=== PATIENT | female | born 1990 | race Caucasian/White ===

== ENCOUNTER 2025-05-17 14:50 | Inpatient (IN) | payer BC, SELFPAY ==
[2025-05-17] VITALS (22 sets, daily range): BP systolic 107–189; BP diastolic 68–131; BMI 25.7; BMI 24.1
[2025-05-17 13:28] LABS: Glucose - Point of Care 100 mg/dl (70-99)
--- NOTE | 2025-05-17 13:32 | ED.GENMED ---
History of Present Illness
General
Chief Complaint: Problems
Time Seen by Provider: 05/17/25 13:29
History of Present Illness
History of Present Illness:
FOCUSED PAST MEDICAL HISTORY
- 31 weeks as of 05/17/2025
REVIEW OF OLD RECORDS
- No old records available for review immediately however L&D team was able to obtain records at [place] which indicate that she is 31 weeks
Note:
CHIEF COMPLAINT(S)
Headache, high blood pressure, vomiting, confusion, tonic-clonic seizure.
HISTORY OF PRESENT ILLNESS
The patient is a 35-year-old female who presented with a headache, high blood pressure, vomiting, and confusion. This morning, she experienced a tonic-clonic seizure that lasted approximately one minute, according to her . Emergency Medical
Services (EMS) were called as the patient began seizing. Upon EMS arrival, she was postictal and still recovering from the seizure. Treatment with magnesium sulfate was initiated via intravenous drip, and the complete dosage was administered as the
patient was coming out of the seizure. She has been experiencing recurring headaches, which were notably present this morning prior to the seizure.
ADDITIONAL HISTORY OBTAINED FROM SOURCES OTHER THAN THE PATIENT
Per EMS: On arrival, the patient was postictal and recovering from a tonic-clonic seizure. EMS administered two grams of magnesium sulfate intravenously, which the patient was responsive to, showing signs of recovery from the seizure. The patients
reported the seizure duration and associated symptoms.
PHYSICAL EXAM
General: Eyes primarily closed, appears postictal, somewhat ill-appearing
Skin: Warm, dry.
Head: Normocephalic, atraumatic.
Neck: Supple, trachea midline.
Eye Ears, nose, mouth and throat: Oral mucosa moist. Pupils dilated bilaterally.
Cardiovascular: Normal peripheral perfusion, no edema.
Respiratory: Respirations are non-labored.
Abdominal: Gravid uterus
Back: Normal range of motion, normal alignment.
Musculoskeletal: No obvious deformity
Neurological: The patient appears postictal and intermittently and has been having trouble answering questions appropriately, appears confused
Psychiatric: Limited examination
PROBLEM LIST
Acute problems:
- Seizure (tonic-clonic)
- Headache
- Vomiting
- Confusion
- Hypertension
PLAN
- Obtain a cranial computed tomography (CT) scan to assess for any acute intracranial pathology.
- Collect a urine sample for further analysis.
- Consult with MEDIA RELATIONS MANAGER as the patient may have -related concerns.
DIFFERENTIAL DIAGNOSIS
The Differential Diagnosis includes, in no particular order and is not limited to:
1. Eclampsia
2. Intracranial hemorrhage
3. Encephalitis
4. Hypoglycemia
5. Hypertensive crisis
6. Epilepsy
7. Migraine with aura
8. Meningitis
9. Brain tumor
10. Substance-induced seizure
RADIOLOGY
- CT head personally reviewed and I see no clear acute abnormality
LABS
- Initial blood sugar 100, white count 13.3, hemoglobin 11.2
UPDATE
- I spoke to EMS for history. They tell me that the patient's was a very poor historian. She reportedly had been having headaches for a while and started vomiting today. EMS was called. EMS arrived very quickly and found her seizing upon
their arrival. They gave her 2 g of IV magnesium. She then became postictal. When she arrived here, she was a very limited historian.
She was immediately sent for CT to ensure there is no other concerning cause and by my read there is no acute intracranial abnormality. While on the CT table she started seizing and was given 10 mg of IV Valium, additional magnesium, and labetalol
20 mg IV as she was hypertensive with systolics around 160.
Dr. Pelayo had been consulted and performed the bedside ultrasound which apparently shows breech presentation.
SUMMARY OF ENCOUNTER
The patient was seen immediately upon arrival to the emergency department, appearing postictal with subsequent seizure activity while in the CT scan. She had been administered magnesium sulfate by EMS before arrival and was given an additional dose
in the emergency department. Her systolic blood pressure was recorded at 160 mmHg, and 20 mg of IV labetalol was administered on the recommendation of Dr. Pelayo. During the CT scan seizure episode, the patient was given 10 mg of IV diazepam
(Valium). She was placed on a non-rebreather mask for oxygen support and required suctioning.
DISPOSITION
Admit.
ASSESSMENT
The patient is experiencing eclampsia, characterized by seizures and hypertension.
EMERGENCY TREATMENTS ADMINISTERED
Additional magnesium sulfate was administered. The patient was given 20 mg of IV labetalol and 10 mg of IV diazepam (Valium). Oxygen was provided via a non-rebreather mask, and suctioning was performed.
MANAGEMENT OF THE PATIENTS CARE WAS DISCUSSED WITH
Dr. Pelayo recommended the administration of labetalol for the patients hypertension.
PLAN
The patient will be admitted for further monitoring and management of eclampsia, with ongoing seizure precautions and blood pressure management. Continuous monitoring and supportive care will continue in a controlled hospital environment.
Coordination with MEDIA RELATIONS MANAGER for specialized management of eclampsia will be necessary.
MEDICATION RECONCILIATION
Magnesium sulfate (additional dose), labetalol IV 20 mg, and diazepam (Valium) IV 10 mg were administered.
MEDICAL DECISION MAKING
-Complexity of Data Reviewed: Differential diagnosis considered but ultimately focused on eclampsia.
-Data:
Category 1: Patient history and EMS reports reviewed.
Category 2: Clinical information obtained through consultation with Dr. Pelayo.
-Risk: Due to the nature of the emergency interventions and the diagnosis of eclampsia, escalation of care with admission for intense monitoring was determined to be necessary to reduce morbidity and mortality risks.
DIAGNOSIS
- Eclampsia (O15.9)
Phy Exam
Physical Exam
Physical Exam:
See HPI
Course
Orders/Labs/Results
Orders:
Orders
05/17/25 Breakfast
NPO
Allow oral meds: No
Allow clear liquids: No
NPO with Ice Chips: No
NPO
Allow oral meds: No
Allow clear liquids: No
NPO
Allow oral meds: No
Allow clear liquids: No
NPO with Ice Chips: No
05/17/25 13:[address] [CT Head W/o Iv Contrast] Urgent
Comment:
Reason For Exam: seizure and headaches
05/17/25 13:41
Calcium Gluconate 1,000 mg IV PRN PRN
05/17/25 13:42
Activity As Directed
Activity Level: Bedrest
Comment: in lateral recumbent position
Continuous Electronic Monitoring As Directed
Comment: continuous heart rate and uterine monitoring while undelivered
INT (Intravenous Needle Therapy) As Directed
Comment: Insert and maintain 2 IV access sites
Intake/ Output As Directed
Frequency: q1h
Comment: strict hourly Input and Output while on magnesium therapy
Magnesium Sulfate Maternal Monitoring As Directed
Monitoring Instructions: Maternal vital signs including Oxygen Saturation
- every 5 minutes during bolus of Magnesium Sulfate, then every 15 minutes x 4, then
every 30 minutes x 2, then every hour until delivered.
- After delivery, every 15 minutes x 2, then hourly until magnesium sulfate therapy
is discontinued.
Deep tendon reflexes (DTR) every 2 hours
Ausculation of lungs every 2 hours
Notify MD As Directed
Notify physician if: 1. Deep tendon reflexes are greater than +2 or absent
2. Rales present or respirations less than or equal to 12
Vital Signs As Directed
Frequency: Other
Additional Instructions:: Maternal vital signs including Oxygen Saturation
- every 5 minutes during bolus of Magnesium Sulfate, then every 15 minutes x 4, then
every 30 minutes x 2, then every hour until delivered.
-After delivery, every 15 minutes x 2, then hourly until magnesium sulfate therapy
is discontinued.
Rx Incentive Spirometry [RESP] Routine
Frequency: Other
Comment: BID
05/17/25 13:43
Labetalol HCl [Trandate] 20 mg IV NOW STA
diazePAM [Valium Injection] 10 mg IV NOW STA
05/17/25 13:44
Calcium Gluconate 1,000 mg IV PRN PRN
Magnesium Sulfate 4 Gram/100Ml [Magnesium Sulfate] 4 gram in 100 ml IV NOW
INT (Intravenous Needle Therapy) As Directed
Comment: Insert and maintain 2 IV access sites
Rx Incentive Spirometry [RESP] Routine
Frequency: Other
Comment: BID
05/17/25 13:59
Propofol [Diprivan] 20 ml .ROUTE .STK-MED
05/17/25 14:00
Mag Sulfate 40 Gram/1000 ml [Magnesium Sulfate 40 Gram] 40 gram in 1,000 ml IV 50 mls/hr
Midazolam HCl [Versed] 5 mg .ROUTE .STK-MED ONE
05/17/25 14:01
Catheter- Indwelling As Directed
Reason for insertion: I&O's Obstetrical
Comment: indwelling urine catheter with urimeter for Pre-Eclampsia patients
Comment:
05/17/25 14:02
Admit Patient As Directed
Co-Sign Provider:
Level of Care: Inpatient admission
Assign to:: LDRP
Physician / Group: Renee
Diagnosis: 31w Eclampsia
Patient Condition: Fair
Reason for Hospitalization: eclampsia mgmt, delivery
Expected length of stay greater than two midnights?: Yes
ELOS- Estimated Length of Stay in days: 4
I certify the patient meets the requirements for IP care: Yes
Acetaminophen [Tylenol] 975 mg PO ONCE ONE
CeFAZolin 2 GRAM [Ancef] 2 grams in 10 ml IV PRE PROCEDURE
Rocuronium [place] [Rocuronium] 50 mg .ROUTE .STK-MED ONE
Sodium Citrate/Citric Acid [Bicitra] 30 ml PO ONCE ONE
Succinylcholine Chloride [Succinylcholine] 200 mg .ROUTE .STK-MED ONE
Catheter- Indwelling As Directed
Reason for insertion: Karla-Op Remove POD #1
Continuous Electronic Monitoring As Directed
Maternal Assessment for Urine Drug Screen As Directed
Instructions: if Maternal substance abuse history is known, suspected or has < 5 visits obtain urine
drug screen
OR/Surgery Prep As Directed
Type of Prep: abdominal clip prep pre-op
Venous Foot Pumps As Directed
Location: Bilateral feet
Comment: apply prior to surgical incision
Vital Signs As Directed
Frequency: Per unit guidelines
Call for:: SBP >/= 160 mmHg, DBP >/= 110 mmHg, pulse > 120 bpm, temperature > 100.4 F
PRN Pain Medication Management As Directed
May give lesser potent ordered pain med per pt: Yes
preference::
Protocol:: Medication orders for pain may be administered in a
manner that supports deferring to patient preference
when the pt is:
- Requesting an ordered lesser potent pain medication.
Least to most potent pain medications are defined
as: acetaminophen < NSAID < tramadol < opioids
(morphine, oxycodone, hydromorphone).
- Requesting a lesser dose of the same medication IF
ORDERED.
- Requesting a less intrusive route of administration
if both routes are prescribed by the provider (PO <
IV).
DX Deep Vein Thrombosis Video Routine
OB Magical Hour Video Routine
OB Unit Welcome Part 1 Video Routine
05/17/25 14:04
0.9% Sodium Chloride 500 ml [Nss] 500 ml IV BOLUS
05/17/25 14:09
Type+Screen Urgent
Complete Blood Count/With Diff Urgent
PTT Urgent
Prothrombin Time Urgent
05/17/25 14:26
Succinylcholine Chloride [Succinylcholine] 200 mg .ROUTE .STK-MED ONE
05/17/25 14:36
Comprehensive Metabolic Panel Urgent
Magnesium Urgent
05/17/25 15:00
Lactated Ringers [Lr] 1,000 ml IV DIRECTED
Abnormal Lab Results
05/17/25 05/17/25
13:26 14:09
WBC 13.3 H 10^3/uL
(4.8-10.8)
RBC 3.61 L 10^6/uL
(4.20-5.40)
Hgb 11.2 L g/dL
(12.0-16.0)
Hct 34.1 L %
(37.0-47.0)
MCHC 32.8 L g/dL
(33.0-37.0)
Abs Immat Gran (auto) 0.1 H 10^3/uL
(0-0.05)
Absolute Neuts (auto) 12.0 H 10^3/uL
(1.4-6.5)
Absolute Lymphs (auto) 1.0 L 10^3/uL
(1.2-3.4)
Neutrophils % 90.6 H %
(42.2-75.2)
Lymphocytes % 7.4 L %
(20.5-51.1)
Monocytes % 1.3 L %
(1.7-9.3)
POC Glucose 100 H mg/dl
(70-99)
05/17/25 14:09
Vital Signs
Initial and Last Documented VS:
Initial Vital Signs
Pulse Resp Pulse Ox
86 14 100
05/17/25 13:58 05/17/25 13:58 05/17/25 13:58
Last Documented Vital Signs
Pulse Resp BP Pulse Ox
91 16 112/98 100
05/17/25 14:20 05/17/25 14:20 05/17/25 14:20 05/17/25 14:20
Information
Weeks gestation: Weeks: (31)
Location: Location: ([facility])
*Pulse Oximetry
Patient hypoxic: no
*Critical Care Note
Total Time (30-74mins, 75-104mins- exclusive of procedures): 65min
comment:
The patient was seen immediately upon arrival. Gave benzos for seizure, gave magnesium for seizure, treated high blood pressure with labetalol. Emergently coordinated care with OB. CT suggest PRES and also notified Dr. Bailon.
ED Attending Note
-
Portions of this chart may have been created with voice recognition software.� Occasional wrong word or��sound alike� substitutions may have occurred due to the inherent limitations of voice recognition software.
Discharge Plan
Departure
Patient Disposition: LDRP
Date of Disposition: 05/17/25
Time of Disposition: 13:58
Presentation/result/management discussed w/ accepting MD/DO: dr pelayo
Discharge Problem:
Eclampsia
Prescriptions:
No Action
Unobtainable
0
Referrals:
UNKNOWN - PT NOT,INTERVIEWE [Family Provider]
Interventions
Interventions:
*Risk Screen - Suicide Last Done: 05/17/25 13:45
*General Assessment Last Done: 05/17/25 13:45
*Neglect/Abuse Screening Last Done: 05/17/25 13:45
ED-Female Genitourinary Assessment Last Done: 05/17/25 13:45
Discharge Date and Time
Print Language: K[place]IL[place]
[2025-05-17] MEDS: MAGNESIUM SULFATE 100 IV (13:45)
[2025-05-17] MEDS: VALIUM INJECTION 10 MG IV (14:03)
[2025-05-17] MEDS: TRANDATE 20 MG IV (14:04)
[2025-05-17] MEDS: NSS 500 IV (14:05)
[2025-05-17 14:31] LABS: INR 0.98; PT 13.3 Sec (11.4-14.6)
[2025-05-17 14:32] LABS: Hematocrit 34.1 % (37.0-47.0); Hemoglobin 11.2 g/dL (12.0-16.0); Mean Corp Hgb Conc. 32.8 g/dL (33.0-37.0); Mean Corpuscular Volume 94.5 fL (81.0-99.0); Nucleated Red Blood Cells % 0 %; Platelet Count 192 10^3/uL (130-400); Red Cell Dist. Width 11.9 % (11.5-14.5)
[2025-05-17] MEDS: ANCEF 10 IV (14:45)
[2025-05-17] MEDS: MAGNESIUM SULFATE 40 GRAM 1000 IV (14:47)
[2025-05-17 14:51] LABS: APTT 18.4 Sec (23.4-35.0)
[2025-05-17 15:07] LABS: Cord ABG Comment CORD BLOOD
[2025-05-17 15:08] LABS: B.E. Cord ABG -6.9 mMOL/L; HCO3 Cord ABG 20.9 mmol/L; O2 Saturation % Cord ABG 86.4 %; PCO2 Cord ABG 50 mmHg; PO2 Cord ABG 43 mmHg; pH Cord ABG 7.23
[2025-05-17 15:14] LABS: O2 Saturation % Cord ABG 93.4 %
--- NOTE | 2025-05-17 15:59 | CON.INTV ---
Consultation
Consultation Request
Date/Time Consultation Requested: 05/17/2025
Date/Time Consultation Performed: 05/17/2025
Medical History
-
Chief Complaint: Altered mental status, Seizure
History of Present Illness:
Patient is currently intubated, mechanically ventilated and sedated. Unable to provide any history. I attempted reaching patient's family on the phone numbers listed in the chart, unable to reach anyone. Information obtained from patient's
medical record as well as discussion with other healthcare providers.
In brief patient is a 35-year-old female who was 31-week and was having nausea vomiting and a headache at home. EMS was called for altered mental status and patient was noted to be seizing. She received magnesium sulfate and subsequently
became postictal, and was brought to the emergency room. Patient was taken emergently to CT scan as she was noted to be hypertensive and had another episode of seizure requiring additional magnesium sulfate. Patient was evaluated by OB service and
was taken emergently to the OR for . Postsurgery, she was brought to ICU intubated, mechanically ventilated and sedated. Silk Presser consultation was requested for further input and I evaluated the patient as soon as she arrived in the
ICU. Discussed with OB attending at bedside.
Past medical history. Not available
Past surgical history. Unable to obtain
Social history. Unobtainable
Family history. Unobtainable
Allergies / Home Medications
Allergies
Allergy/AdvReac Type Severity Reaction Status Date / Time
No Known Allergies Allergy Verified 05/17/25 14:08
Home Medications
�Medication �Instructions �Recorded �Confirmed �Last Taken �Type
Unobtainable 05/17/25 05/17/25 Unknown History
Review of Systems
-
Unable to Obtain full review of systems at this time due to: Patient Intubation
Vitals / Labs / Diagnostic Testing
Vital Signs
Pulse Resp BP Pulse Ox
91 16 112/98 100
05/17/25 14:20 05/17/25 14:20 05/17/25 14:20 05/17/25 14:20
Lab Data
05/17/25 14:09
Laboratory Results
05/17/25
14:09
PT 13.3
INR 0.98
APTT 18.4 L
Diagnostic Testing:
Physical Exam
-
HEENT: Normocephalic
Cardiovascular: S1/S2
Respiratory: Clear and Non-Labored Respirations
GI: Soft and Non Distended
Neurology: Other (Currently sedated)
Skin: Warm
General: Comfortable
Assessment
-
#1. Seizures with suspect Eclampsia
- Patient had seizures x 2, hypertension on arrival along with altered mental status and PRES changes on imaging
- S/p intubation and mechanical ventilation in the emergency room, followed by emergent , currently intubated and sedated in ICU
- Continue magnesium infusion as ordered per OB service.
- Stat bedside EEG to monitor for any nonconvulsive seizure
- Continue sedation, propofol and fentanyl while intubated
- IV Valium as needed for break through seizure
- If patient develops any additional episodes of seizure, will initiate antiseizure medication
- Neurology consult for further recommendations
- Continue to monitor closely in ICU
- Platelet count is normal at 192K, check liver function testing stat. INR normal at 0.98
#2. Hypertensive emergency with PRES syndrome
- Labetalol 10 mg IV every 4 hrs as needed systolic above 160. Initiate Cardene infusion, target BP < 140/90, discussed with OB attending
- Monitor input and output strictly, monitor renal function closely
#3. Acute respiratory failure
- Patient intubated in emergency room in the setting of seizures and postictal state with eclampsia
- Initiate propofol and fentanyl for sedation, continue volume assist-control mechanical ventilation, currently on 500/14. ABG reviewed, change settings to 400/16/50%/5. ABG in 1 hour
- Check stat ABG and lactate level. Check stat chest x-ray
- Will initiate SAT and SBT once cleared by Ob service
Other diagnoses:
- 31 weeks. s/p Emergent C- Section 05/17/2025 for Eclampsia. Management per Ob service
- HTN and ? Hypothyroidism.
DVT prophylaxis. SCDs. Will defer initiation of chemical prophylaxis to surgical service
GI prophylaxis. IV Protonix
Attempted to reach family on the phone numbers listed in the chart, unable to reach.
Addendum: I was able to talk to patient's partner, Haseeb Zaragoza, . Reported h/o HTN, not on any anti-hypertensive meds.
Critical Care time 68 mins -- The patient is admitted for acute critical illness for the treatment of vital organ failure and/or prevention of further life-threatening conditions. Total care includes time spent in review of history, physical exam,
medications, hemodynamic/ventilator parameters, laboratory data, imaging and discussion with house staff, pharmacy, respiratory therapy, combination welder, and nursing.
Data:
CT Head 05/2025: Mild amount of nearly symmetric low attenuation in the posterior cortical del cid matter and subcortical white matter of both occipital lobes most consistent with POSTERIOR REVERSIBLE ENCEPHALOPATHY SYNDROME (PRES).
[2025-05-17] MEDS: DIPRIVAN 100 IV ×2 (16:18→23:56)
[2025-05-17] MEDS: PITOCIN 30 UNITS/NSS 500 ML IV ×2 (16:19→20:01)
--- NOTE | 2025-05-17 16:21 | HPS.HSE ---
Family Physician
-
Family Physician: INTERVIEWE UNKNOWN - PT NOT
Chief Complaint
-
seizure, PAULA, N/V
History of Present Illness
Flora Maria is a 35 yo at 31w0d presenting via EMS after a witnessed seizure at home. Patient's boyfriend states that she had an episode of altered mental status and prolonged headache. Patient's boyfriend reports normal with no
issues although he is a poor historian. Patient was receiving care at [facility].
Medical History
Past Medical History
Past Medical History: Reports None
Additional Past Medical History:
Questionable chronic hypertension, Not on meds
Past Surgical History: Reports None
Social History
Tobacco: Non-smoker
Alcohol: None
Drug: None
Living: With Family
Family History
Family History: Not pertinent
Allergies / Home Medications
Allergies reflects when Allergies were last updated in [employer].
Home Medications with original date entered in [employer]
Allergy/Medication List:
Allergies: No known drug allergies
Home medications: Levothyroxine 25 mcg daily, vitamin daily
Review of Systems
-
Unable to obtain full review of systems at this time due to: Acuity
History Source: Family and Transfer Record
Abdomen/GI: Reports Nausea and Vomiting
Neurological: Reports Headache
Physical Exam
Vital Signs
Vital Signs
Pulse Resp BP Pulse Ox
91 16 112/98 100
05/17/25 14:20 05/17/25 14:20 05/17/25 14:20 05/17/25 16:09
Physical Exam
General: Appears in Distress
HEENT: NormoCephalic
Respiratory: Non Labored Respirations
GI: Soft, Non Tender and Other (Gravid)
Skin: Warm and Dry
Neuro: Other (Postictal)
Laboratory Results
-
05/17/25 14:09
Laboratory Results
PT 13.3 Sec (11.4-14.6) 05/17/25 14:09
INR 0.98 05/17/25 14:09
APTT 18.4 Sec (23.4-35.0) L 05/17/25 14:09
Total Bilirubin Cancelled 05/17/25 14:09
AST Cancelled 05/17/25 14:09
ALT Cancelled 05/17/25 14:09
Alkaline Phosphatase Cancelled 05/17/25 14:09
Data Reviewed
-
CT Scan: Report Reviewed by me, Discussed with Physician, Discussed with Patient and Discussed with Family
Lab Data: Labs Reviewed by me, Discussed with Patient and Discussed with Family
Old Records: Requested and Reviewed
Impression/Plan
-
IMPRESSION:
Flora Maria is a 35 yo at 31w0d presenting with suspected eclamptic seizure.While patient underwent initial evaluation in the emergency room, patient was noted to have a witnessed seizure in CT.
PLAN:
� Admit for eclampsia management and delivery
� 2 g of mag was given in ambulance, 4 g in ER, 2 g/h maintenance until 24 hours . Collect preeclampsia labs. As needed antihypertensives (already received 20mg of IV labetalol).
� CT head, Patient did have witnessed seizure during CT. consider MRI when stable
� Preop Ancef 2 g with plan for 1LTCS in the setting of eclampsia.
�Patient's partner consents to blood transfusion and CPR if needed given patient is not responsive.
--- NOTE | 2025-05-17 16:22 | OR.RPT ---
Operative Report
Operative Report
Operative Report
Surgery Date: 05/17/2025
Patient: Flora Maria
: 1990

Surgeon: Remedios Duran MD
Preop diagnosis: 31w0d IUP, eclampsia
Postop diagnosis: Status post primary low-transverse section at 31 weeks 0 days under general anesthesia for eclampsia
Procedure: Primary low-transverse section
Job Service Consultant: Camila Zeng
Anesthesia: General; MD You
QBL: 340cc
Drains: Ramirez
Operative findings:
1. Viable male born on 05/17/2023 at 1446 with Apgars of 2, 4, and 4 at 1, 5 and 10 minutes. Fetus weight is pending at the time of dictation.
2. Normal intact small placenta with centrally inserted three-vessel cord.
3. Normal uterus, bilateral tubes and ovaries.
Umbilical cord:
Arterial: pH 7.3, CO2 50, O2 43, HCO3 20.9, and base excess -6.9
Complications: None
Counts correct x 2
Procedure details:
The patient was taken to the operating room. The patient was placed in dorsal supine position with a left tilt of the hips. heart tones were noted to be 140s in the OR. General anesthesia was adequately established. 2 g of Ancef was given
for preoperative prophylaxis. The patient was prepped with ChloraPrep for abdominal prep and draped in the usual sterile fashion for a Pfannenstiel skin incision.
A timeout was performed to confirm correct patient and correct procedure.
A Pfannenstiel incision was made and carried down through the underlying subcutaneous tissue to the fascia using a scalpel. Rectus fascia was then excised. We then proceeded in [place]: Fashion. All anatomic layers were well-demarcated. The
rectus muscles were and the peritoneum was identified, entered, and extended longitudinally with blunt dissection.
The bladder blade was inserted and a transverse incision was made in the lower uterine segment using a new surgical blade. The uterine incision was extended cephalad and caudad using blunt dissection. The amniotic sac was entered and the amniotic
fluid was noted to be clear.
The surgeons hand was placed into the uterine cavity. The buttocks was identified and elevated through the uterine incision with the assistance of fundal pressure. body was delivered to the level of the scapula with spontaneous
delivery of lower extremities. Remainder of arms and vertex delivered atraumatically via Aqbrvliak-Pxjqslx-Gaqg maneuver. There was no nuchal cord noted. On delivery the cord was immediately doubly clamped and cut given floppy
appearance of . The infant was then passed off the table to the waiting staff. Venous and arterial blood gas, cord blood, and portion of cord was obtained for analysis and routine blood testing. The placenta delivered and was then
sent to pathology. Placenta was noted to be intact with a centrally inserted three-vessel cord. Oxytocin was administered by IV infusion to enhance uterine contraction. The uterus was exteriorized and cleared of all clots and debris.
The uterine incision was reapproximated using an 0 Vicryl in a running locked fashion. A second imbricating stitch with the same suture was applied. The uterine incision was examined and noted to be hemostatic. The posterior cul-de-sac was
cleared of all clot and debris with a lap sponge. The uterus was replaced into the abdomen and the paracolic gutters were cleared of all clots. The uterine incision was once again examined and noted to be hemostatic. The fascia was reapproximated
using 0 Vicryl in a running nonlocked fashion. The subcutaneous tissue was irrigated and cleared of all clots and debris. Good hemostasis was noted with Bovie electrocautery. The subcutaneous tissue was reapproximated with 2-0 plain gut. The
skin incision was closed using 4-0 Monocryl. Good hemostasis was noted. Patient tolerated the procedure well. TXA was given at the conclusion of the surgery given risk of hemorrhage. All needles, sponge, and instrument counts were noted
to be correct x 2 at the end of the procedure. Patient was transferred to the ICU intubated in critical but stable condition. Dr. Duran was present for the entirety of the procedure.
[2025-05-17] MEDS: SUBLIMAZE 50 MCG IV ×2 (16:23→17:09)
[2025-05-17] MEDS: SUBLIMAZE 100 IV (16:24)
[2025-05-17 16:32] LABS: B.E. -4.3 mmol/L; HCO3 17.8 mmol/L (21-28); O2 Saturation % 100.0 % (94-98); PCO2 25 mmHg (32-35); PO2 486 mmHg (83-108)
[2025-05-17 16:48] LABS: Triglycerides 157 mg/dl (10-149)
[2025-05-17 16:59] LABS: ALT (SGPT) 18 U/L (0-35); AST (SGOT) 33 U/L (14-36); Albumin 3.2 g/dl (3.5-5.0); Alkaline Phosphatase 99 U/L (38-126); Blood Urea Nitrogen 9 mg/dl (7-17); Calcium 7.6 mg/dl (8.4-10.2); Carbon Dioxide 16 mmol/L (22-30); Chloride 112 mmol/L (98-107); Estimated Creatinine Clearance 120 ml/min; Glucose 131 mg/dl (70-99); Magnesium 5.2 mg/dl (1.6-2.3); Potassium 4.0 mmol/L (3.5-5.1); Sodium 133 mmol/L (135-145); Total Protein 6.2 g/dl (6.3-8.2); eGFR > 60.00
[2025-05-17] MEDS: TRANDATE 10 MG IV (17:00)
--- NOTE | 2025-05-17 17:03 | HPS.HSE ---
Family Physician
-
Family Physician: INTERVIEWE UNKNOWN - PT NOT
Chief Complaint
-
seizures
History of Present Illness
35-year-old female who is 31 weeks past medical history of possible hypertension, possible hypothyroidism, presenting with headache, high blood pressure vomiting and headache. This morning she experienced a tonic-clonic seizure lasting 1
minute according to her partner and she was altered. EMS were called as the patient began seizing. Upon EMS arrival she was postictal and still recovering from the seizure. History is obtained from emergency room physician and spanish teacher. I was
Unable to reach patient's partner for further details.
She was brought to the emergency room and given magnesium sulfate and underwent CT scan and was noted to be hypertensive and had another seizure episode requiring additional magnesium sulfate and labetalol. She was taken emergently to OR for
. After the surgery she was brought to ICU intubated and sedated.
She does not smoke or drink alcohol.
Medical History
Past Medical History
Past Medical History: Reports Other (31 weeks past medical history of possible hypertension, possible hypothyroidism)
Past Surgical History: Reports None
Social History
Tobacco: Non-smoker
Alcohol: None
Drug: None
Family History
Family History: Not pertinent
Allergies / Home Medications
Allergies reflects when Allergies were last updated in [facility].
Home Medications with original date entered in [facility]
Allergy/Medication List:
Allergies
Allergy/AdvReac Type Severity Reaction Status Date / Time
No Known Allergies Allergy Verified 05/17/25 14:08
Home Medications
Unobtainable 05/17/25
Review of Systems
-
History Source: Patient
A 12 point ROS was completed and negative except as noted: Yes
Constitutional: Reports No Symptoms
EENT: Reports No Symptoms
Respiratory: Reports No Symptoms
Cardiac: Reports No Symptoms
Abdomen/GI: Reports No Symptoms
: Reports No Symptoms
Musculoskeletal: Reports No Symptoms
Skin: Reports No Symptoms
Neurological: Reports No Symptoms
Endocrine: Reports No Symptoms
Hematologic/Lymphatic: Reports No Symptoms
Psych: Reports No Symptoms
Physical Exam
Vital Signs
Vital Signs
Pulse Resp BP Pulse Ox
91 16 112/98 100
05/17/25 14:20 05/17/25 14:20 05/17/25 14:20 05/17/25 16:36
Physical Exam
General: Well Developed, Well Nourished and No Apparent Distress
HEENT: NormoCephalic, Moist mucous membranes and Atraumatic
Respiratory: Clear
Cardiac: S1/S2 and Regular Rhythm; No Murmur or Rub
GI: Soft, Non Tender, Non Distended and Normal Bowel Sounds; No Organomegaly
Rectal: Deferred by Provider
Musculoskeletal: No Clubbing, No Cyanosis and No Edema
Skin: No Rash
Neuro: Nonfocal/grossly intact
Laboratory Results
-
05/17/25 14:09
05/17/25 16:22
Laboratory Results
PT 13.3 Sec (11.4-14.6) 05/17/25 14:09
INR 0.98 05/17/25 14:09
APTT 18.4 Sec (23.4-35.0) L 05/17/25 14:09
pH 7.46 (7.35-7.45) H 05/17/25 16:22
pCO2 25 mmHg (32-35) L 05/17/25 16:22
pO2 486 mmHg (83-108) H 05/17/25 16:22
HCO3 17.8 mmol/L (21-28) L 05/17/25 16:22
Lactic Acid 2.0 mmol/L (0.7-2.0) 05/17/25 16:22
Total Bilirubin 0.4 mg/dl (0.2-1.3) 05/17/25 16:22
AST 33 U/L (14-36) 05/17/25 16:22
ALT 18 U/L (0-35) 05/17/25 16:22
Alkaline Phosphatase 99 U/L (38-126) 05/17/25 16:22
Data Reviewed
-
Lab Data: Labs Reviewed by me
Old Records: Reviewed
Impression/Plan
-
IMPRESSION:
PLAN:
# Seizures secondary to suspected eclampsia
- Underwent emergent today at 31 weeks
- FOAM MOLDER recommending magnesium for 24 hours
- Patient intubated due to seizures
- Patient on propofol drip, fentanyl drip
-Continue IV fluids
- IV Valium, Keppra load for further seizures
-ABG showed alkalosis, vent settings adjusted
- Gun Examiner following
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
# Hypertensive emergency
- CT head shows mild amount of nearly symmetrical low-attenuation in the posterior cortical del cid matter and subcortical white matter of the supra lobes consistent with posterior reversible encephalopathy syndrome
- Nicardipine drip started goal blood pressure under 140/90
-As needed labetalol for elevated blood pressure
-Check MRI brain
- Neurology consult
# 31 weeks status post emergent
-Continue oxytocin infusion per protocol for postoperative bleeding
-Baby was intubated and transferred to [facility]
Chronic anemia
- Hemoglobin 11.2
Possible history of prior hypertension
- Not on any antihypertensive medication
Possible history of hypothyroidism
- Check TSH
Full code
DVT prophylaxis�SCDs
N.p.o.
[2025-05-17] MEDS: MAGNESIUM SULFATE 40 GRAM IV (17:27)
[2025-05-17 17:49] LABS: B.E. -5.5 mmol/L; HCO3 17.5 mmol/L (21-28); O2 Saturation % 100.0 % (94-98); PCO2 27 mmHg (32-35); PO2 204 mmHg (83-108)
[2025-05-17 18:01] LABS: Fibrinogen 338 MG/DL (199-459)
--- NOTE | 2025-05-17 18:23 | PTCARENOTE ---
Received pt as direct back from OR with Melanie Noland at bedside upon arrival. Pt hypertensive with any stimulation. Dr Jacobson pushed medication?? prior to leaving unit. Propofol/fentanyl started upon arrival with improvement in bp
initially, but continued to be hypertensive with minimal stimulation. Labetalol given with improvement, but pt started moving waking up and bp again elevated. Cardene initiated. Pt did nod appropriately, follow commands, graham. Denied pain on
fentanyl, but kept coughing thus raising bp so propofol increased as charted. Pt also on LR@75ml/hr, Oxytocin at 42ml/hr and Mag Sulfate at 50ml/hr that were all hung by LDRP RN and confirmed by myself. Fundus checks and bleeding monitored by LDRP
RN and charted in their system.
[2025-05-17] MEDS: OFIRMEV 100 IV (19:57)
--- NOTE | 2025-05-17 20:00 | PTCARENOTE ---
Rec'd pt with wrist restraintson for pt safety, pt awakens easily, follows commands, denies pain, diprovan gtt at 30mic, fent gtt at 50 caro, BUSTAMANTE, no seizure activity noted, cerebell monitoring on, SR, Left rad siena w/ good wave form, flushes well,
zeroed, to keep sbp < 140/90 w. cardene gtt- presently at 2.5 mg, see flow sheet for titrations, pitocin at 42ml/hr, mag sulfate at 50ml/hr, LDRP RN monitoring DTR and fundus checks, weak distal pulses, + gen puffiness, skin warm/dry, #7 oral ett-
repos on left side at 23 cm, ac 16, tv 400, 5 peep, 40%, lungs clear, no secretions, sat 99, + bowel sounds, no bm, abd soft, no n/v, npo, chiang draining deion urine
[2025-05-17] MEDS: NSS (PRESERVATIVE FREE) 10 ML IV (20:02)
[2025-05-17] MEDS: PROTONIX IV 40 MG IV (20:03)
[2025-05-17 20:49] LABS: ALT (SGPT) 18 U/L (0-35); AST (SGOT) 33 U/L (14-36); Albumin 3.1 g/dl (3.5-5.0); Alkaline Phosphatase 98 U/L (38-126); Blood Urea Nitrogen 9 mg/dl (7-17); Calcium 7.8 mg/dl (8.4-10.2); Carbon Dioxide 16 mmol/L (22-30); Chloride 112 mmol/L (98-107); Estimated Creatinine Clearance 120 ml/min; Glucose 131 mg/dl (70-99); Potassium 3.8 mmol/L (3.5-5.1); Sodium 132 mmol/L (135-145); Total Protein 6.1 g/dl (6.3-8.2); eGFR > 60.00
--- NOTE | 2025-05-17 21:44 | PTCARENOTE ---
L&D Nursing Assessment @ 20:15 MagSO4 check; fundus and lochia check
No s/s Magnesium toxicity on MagSO4@ 2gms/hr.; DTR's +2 bilat.; lungs CTAB; u/o 75 cc over last 2 hrs.
FFU-2, small amt. osmany rivera. See add'l. documentation in OB documentation system.
Grisel Quevedo, RNC, BSN
[2025-05-17] MEDS: LR 1000 IV (21:48)
[2025-05-17] MEDS: CARDENE 200 IV (22:46)
--- NOTE | 2025-05-17 22:59 | PTCARENOTE ---
L&D Nursing for MagSO4 and Fundal check (Pt. intubated, sedated, ventilated, cared for in ICU)
MagSO4 continues @ 2 gms/hr. Lungs CTAB, DTR's +2 bilat. adeq. u/o, avg. 80cc/hr last 2 hrs.; follows simple commands; expressed understanding by giving 'thumbs up'
FFU-2, sm.amt. lochia w/ small unformed clot--WNL.
Will cont. to monitor.
[2025-05-18] VITALS (19 sets, daily range): BP systolic 109–133; BP diastolic 70–96; BMI 24.1
--- NOTE | 2025-05-18 | PTCARENOTE ---
Addendum entered by Mirta Birmingham RN 05/18/25 00:59:
pitocin dc'd per protocal
Original Note:
sys reviewed, changes noted, chg bath done, linens changed
--- NOTE | 2025-05-18 01:54 | PTCARENOTE ---
L&D Nursing MagSO4 and fundal check 00:15
No s/s Magnesium toxicity; FFU U-2, scant lochia rubra
[2025-05-18] MEDS: OFIRMEV 100 IV ×3 (01:55→14:16)
[2025-05-18 03:39] LABS: B.E. -4.3 mmol/L; HCO3 19.6 mmol/L (21-28); O2 Saturation % 100.0 % (94-98); PCO2 31 mmHg (32-35); PO2 203 mmHg (83-108)
[2025-05-18 04:02] LABS: Hematocrit 27.9 % (37.0-47.0); Hemoglobin 9.6 g/dL (12.0-16.0); Mean Corp Hgb Conc. 34.4 g/dL (33.0-37.0); Mean Corpuscular Volume 91.2 fL (81.0-99.0); Nucleated Red Blood Cells % 0 %; Platelet Count 162 10^3/uL (130-400); Red Cell Dist. Width 12.2 % (11.5-14.5)
[2025-05-18 04:05] LABS: ALT (SGPT) 18 U/L (0-35); AST (SGOT) 44 U/L (14-36); Albumin 2.8 g/dl (3.5-5.0); Alkaline Phosphatase 82 U/L (38-126); Blood Urea Nitrogen 8 mg/dl (7-17); Calcium 5.6 mg/dl (8.4-10.2); Carbon Dioxide 20 mmol/L (22-30); Chloride 110 mmol/L (98-107); Estimated Creatinine Clearance 120 ml/min; Glucose 134 mg/dl (70-99); Magnesium 6.7 mg/dl (1.6-2.3); Potassium 3.6 mmol/L (3.5-5.1); Sodium 133 mmol/L (135-145); Total Protein 5.5 g/dl (6.3-8.2); eGFR > 60.00
--- NOTE | 2025-05-18 04:06 | PTCARENOTE ---
sys reviewed, changes noted
--- NOTE | 2025-05-18 04:08 | PTCARENOTE ---
Hussein Sanches NP aware of Russ & Mag levels, will cont to monitor
--- NOTE | 2025-05-18 05:21 | PTCARENOTE ---
L&D Nursing Late Entry 04:10
No s/s Mag toxicity; adeq. u/o; PP check WNL
--- NOTE | 2025-05-18 07:33 | W.RAPID.EEG ---
Rapid EEG
-
Procedure Date: 05/17/25
Results:
IMPRESSION:
No evidence of status epilepticus
Recording 1:
Start Time: May 17, 2025 16:06 PM End Time: May 18, 2025 07:24 AM
Recording Technique: This EEG was obtained using a 10 lead, 8 channel system positioned circumferentially without any parasagittal coverage (rapid EEG).Computer selected EEG is reviewed as well as background features and all clinically significant
events. Clarity algorithm utilized and implemented to provide analysis of underlying activity and seizure detection used to facilitate reading. ICD-10 Code [id number]
Clinical History: QASIM SINGLETON is a 35 year old Prior Seizure patient undergoing EEG to screen for non-convulsive status epilepticus.
Disclaimer: EEG findings should be interpreted in the context of clinical history and other tests. A normal EEG does not rule out epilepsy or other conditions, and an abnormal EEG is not diagnostic on its own. Technical factors may affect
interpretation. Clinical context is required.
--- NOTE | 2025-05-18 08:15 | W.PN.INTV ---
Today's Communication / Plan
Recommendations
- Mg through this afternoon
- Extubate today
- Likely transfer to [facility] [facility] floor later today
- A line d/c
- Ramirez mgmt per [employer] [facility]
- PPI
- SCDs
- Restart home synthroid 25mcg
Assessment
-
Flora Maria is a 35yo F with a pmh of hypothyroid & HTN (not on meds) who called EMS at 31 weeks with n/v and headache, experienced seizure episode, was administered Mg sulfate, and was brought to ED, where she experienced another
seizure episode during CT scan (s/p additional Mg sulfate) and was found to be hypertensive (systolic 160s). Patient is now intubated & sedated, s/p emergency on 05/17. Nuclear Equipment Test Engineer consulted for further mgmt. Plan as below.
#Seizures, likely 2/2 eclampsia
#Respiratory failure in s/o postictal state, eclampsia
31 week F with n/v, HTN, and seizure episodes x2, s/p Mg sulfate and emergency . Required intubation/sedation. INR normal at 0.98. Hgb 11.2>9.5. Plt count normal 192K. ALT 18, AST 44. Low suspicion for HELPP. CXR 05/17 unremarkable.
Lactate wnl 2.0. ABG pH 7.46>7.41; pCO2 25>31; bicarb 17.8>19.6 (c/w mild respiratory alkalosis w metabolic insufficient compensation, now resolved on vent). EEG 05/18: 'No evidence of status epilepticus.'
Today: no pressors; sedation: propofol & fentanyl turned off this am; vent settings: SBT
- Continue Mg infusion through this afternoon
- SAT/SBT today
- LR infusion
- IV diazepam PRN for breakthrough seizure
- D/c a line
- [employer] following, appreciate recs
- Neurology consulted, appreciate recs
#Hypertensive emergency
#PRES syndrome
S/p 20mg IV labetalol in ED. Presented w systolic BP in 160s. CT head 05/17: 'Mild amount of nearly symmetric low attenuation in the posterior cortical del cid matter and subcortical white matter of both occipital lobes most consistent with PRES.'
Nicardipine infusion turned off early am 05/17.
Today: BP 113/76. Cr: 0.6
- PRN labetalol 10mg IV q4h for systolic >160
- Monitor I&Os, renal fxn
#S/p emergency for 31wk
On 05/17 in s/o eclampsia. Baby was intubated and transferred to [facility]. Oxytocin infusion turned off 05/17 am.
- Mgmt per [employer] service
#Chronic
- Hypothyroid - TSH 0.63 wnl; restart levothyroxine when can tolerate PO
- HTN - not on meds (per patient's partner, Haseeb)
#Global
- DVT ppx: SCDs; chemical ppx per [employer] service
- GI ppx: PPI
- Code: full
- Dispo: continue ICU level care this am, transfer to [facility] [facility] floor later today
Subjective Dataa
Subjective Data
Date of Service:
Date of Service: May 18, 2025
Chief Complaint: Nuclear Equipment Test Engineer Follow Up
Subjective:
Pt awake, responsive, on SBT/SAT this am on exam. Making eye contact, interactive, nodding/shaking yes to answer Qs. Endorses some abdominal pain. Confirmed that she takes synthroid at home.
Review of Systems
General: Other (Pt with ventilator in place)
GI: Abdominal Pain
Objective Data
Data Reviewed
Vital Signs / I&O / Oxygen:
Vital Signs
Temp Pulse Resp BP Pulse Ox
97.7 F 73 18 113/76 100
05/18/25 07:37 05/18/25 07:00 05/18/25 07:00 05/18/25 07:00 05/18/25 07:27
Intake and Output
05/17/25 05/18/25 05/19/25
06:59 06:59 06:59
Intake Total 2544.4 / 2680.3 135.9 / 135.9
Output Total 1335 / 1385 50 / 50
Balance 1209.4 / 1295.3 85.9 / 85.9
SaO2 [A/C] 100
SaO2 100
Physical Exam
General: Comfortable
HEENT: Normocephalic and Anicteric
Cardiovascular: Regular Rhythm and Other (1+ pitting edema in bilateral feet )
Respiratory: Clear (anteriorly), Non-Labored Respirations and ET Tube (in place )
GI: Soft, Non Distended and Other ( scar clean, with surgical glue, no erythema, no drainage)
Neurology: Awake and Alert
Skin: Warm, Dry and Good Color
Labs/Micro/Reports
Lab Data
05/18/25 03:33
05/18/25 03:33
Laboratory Results
05/17/25 05/17/25 05/17/25
14:09 16:22 17:35
PT 13.3
INR 0.98
APTT 18.4 L
pH 7.46 H 7.42
pCO2 25 L 27 L
pO2 486 H 204 H
HCO3 17.8 L 17.5 L
O2 Delivery Level
05/18/25
03:33
PT
INR
APTT
pH 7.41
pCO2 31 L
pO2 203 H
HCO3 19.6 L
O2 Delivery Level
--- NOTE | 2025-05-18 08:24 | W.PN.ANS.POP ---
Anesthesia Post Operative
- Anesthesia Post Op Note
Vital Signs Stable-See Nursing Note: Yes (BP controlled)
Airway Patent: Yes (intubated)
Adequate Pain Control: Yes
Change in Mental Status: No (responsive)
Current Postoperative Nausea & Vomiting: No
Anesthesia Complications: No
General Anesthetic Recall: No
Unplanned Admission: No (ICU for critical care/vent management)
Post Op Hydration Adequate: Yes
[2025-05-18] MEDS: PROTONIX IV 40 MG IV (08:41)
[2025-05-18] MEDS: NSS (PRESERVATIVE FREE) 10 ML IV (08:41)
--- NOTE | 2025-05-18 08:50 | PTCARENOTE ---
Receiving patient awake resting in bed. on fentanyl @50mcg/ propofol @15mcg infusing via LAC PIV. Nods head and gesturing appropriately, able to give thumbs up. Received pt with Ceribell in place, 0% seizure burden. Removed at 0830 per Neurology
request. Moves all extremities. Intubated, tolerating vent; initial setting AC 16/TV 400/ 40%/ PEEP 5, adding some rate and volume. Transitioned to CPAP 5/ PS 5 @ [address] Gabriel. Sp02 98-99%. Breath sounds coarse bilaterally. #7 ETT, 23cm @
lip. Oral care done. Suctioned for scant amount of clear secretion. +gag/cough. NSR on quality assurance monitor, no ectopy. VS as documented. Left radial A-line zeroed and recalibrated. Overall congruent with cuff pressure. Dressing site w/ biopatch WNL,
good CMS check. Abd soft slightly tender to surgical site, hypoactive BS. Ramirez with clear yellow UO >30mL/hr. Magnesium gtt @ 50mL/h. LR infusing @ 75mL/hr into right wrist PIV. Bilateral soft wrist restraints removed as documented. Turned and
repositioned, back rub given. Heels floated on pillows. SCDs on. POC reviewed with patient and Mayank) at bedside. Call christy within reach. LDRP RN to assess and monitor DTR/fundus checks/ vaginal bleeding.
--- NOTE | 2025-05-18 09:05 | W.PN.HOSP.TC ---
Addendum entered and electronically signed by Yaw Carreno MD 05/22/25 17:09:
I personally reviewed and evaluated this patient with the resident. I agree with above unless if otherwise stated below.
I personally reviewed labs and imaging corporate health consultant notes case management note
Addendum entered and electronically signed by Yaw Carreno MD 05/19/25 13:58:
Read, reviewed, and agree. See same day progress note for additional details. Time spent reviewing records in EMR, med rec, consults, notes, d/w consultants, nursing, family, and CM
Addendum entered and electronically signed by Yaw Carreno MD 05/18/25 15:07:
Eclampsia which is defined by seizure and uncontrolled hypertension/hypertensive urgency, no UA to check for proteinuria
S/p delivery of male fetus via , transferred to [facility]
S/p magnesium sulfate drip and currently on oxytocin
inci care insion by OB
Being managed by Ob
Fortunately without evidence of help syndrome as platelets have been greater than 150, LFTs within normal and bili was less than 0.5 therefore low clinical suspicion for hemolytic anemia/schistocytes to be present on peripheral blood smear however
was not checked
Seizures secondary to eclampsia
While in the ED CT brain completed fortunately without bleed or lesions. Per documentation there is no noted evidence of focal neurological deficit, blown pupils to suspect bleed or stroke. From documentation did not sound as though she was in
status epilepticus however did have another seizure while in CT.
Neurology consulted. Continues to have blurry vision, per neurology will perform MRI brain in the next 24 hours not back to baseline
Continue magnesium per gynecology
Would not add additional antiepileptic agents at this time
Hypothyroidism
Continue levothyroxine
Acute hypoxemic respiratory failure requiring mechanical ventilation during and post .
Extubated on 05/18/2025
Anemia likely acute on chronic
Without evidence of acute active bleeding
Will continue to follow hemoglobin and for evidence of bleeding
Hemodynamically stable
Transfuse if <7
Attending attestation
Original Note:
Today's Communication/Plan
-
Plan reviewed with attending
Assessment / Plan
Assessment / Plan
35yoF presented initially 31 weeks with eclampsia, headache, vomiting, seizing at home. Her partner called EMS, en route gave magnesium. Pt received Mg and labetalol in ED, had another seizure in CT scanner. Intubated and had emergency
, brought to ICU intubated and sedated. Baby sent to [facility].
Pt was being weaned off sedation still intubated in morning. Now extubated. She reports continued double vision that is improving. She denies headache, confusion. Reports mild abdominal discomfort, no acute pain.
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
Pt presented with seizures and elevated BP, now resolving s/p c section on Mg and nicardipine drip 2.5mg. AFVSS. LFTs WNL.
Managed by OB. On L and D floor now.
#seizures and hypertensive urgency secondary to Eclampsia
- Mg managed by OB
- No seizures since removal of placenta
- HTN improving on nicardipine with PRN labetalol
- Holding brain MRI. If vision continued to be doubled by tomorrow, stat brain MRI.
- Neurology signed off
#s/p 31wk
#anemia
- s/p c section
- Monitor h and h
- Transfuse if Hgb <7
#hypocalcemia
- replete
Chronic:
hypothyroid
- continue
Diet: as tolerated
Code:
full
Anticipated Discharge: 24 - 48 hours
Subjective/Interval History
-
Date of Service: May 18, 2025
Pt is feeling well this morning. She reports continued double vision but no nausea or vomiting. She reports her headaches have resolved.
Objective Data
-
Labs:
Laboratory Results
05/18/25
03:33
WBC 16.4 H
Hgb 9.6 L
Hct 27.9 L
Plt Count 162
HCO3 19.6 L
Sodium 133 L
Potassium 3.6
Chloride 110 H
Carbon Dioxide 20 L
BUN 8
Creatinine 0.6
Glucose 134 H
Calcium 5.6 L* D
Total Bilirubin 0.3
AST 44 H
ALT 18
Alkaline Phosphatase 82
Vital Signs:
Vital Signs
Temp Pulse Resp BP Pulse Ox
97.7 F 89 14 113/76 100
05/18/25 07:37 05/18/25 08:55 05/18/25 08:55 05/18/25 07:00 05/18/25 08:55
I&O
05/17/25 05/18/25 05/19/25
06:59 06:59 06:59
Intake Total 2544.4 / 2680.3 496.8 / 496.8
Output Total 1335 / 1385 185 / 185
Balance 1209.4 / 1295.3 311.8 / 311.8
Review of Systems
-
Unable to obtain full review of systems at this time due to: Patient Intubation
Physical Exam
-
General: Well Developed, Well Nourished, No Apparent Distress, Comfortable and Intubated
HEENT: Normocephalic, Atraumatic, Moist Mucous Membranes and Other (intubated)
Respiratory: Clear to Auscultation and Non Labored Respirations
Cardiac: Regular Rhythm and S1/S2
Breast: Deferred by me
GI: Soft, Nondistended and Tender (mildly, no gaurding or rebound)
Genito-urinary: Other (c section scar well approximated with surgical glue)
Musculoskeletal: No Edema
Skin: Warm and Dry
Neuro: AO x 3, Sedated and Nonfocal/Grossly Intact
Psych: Calm
--- NOTE | 2025-05-18 09:08 | CON.NEURO4 ---
Addendum entered and electronically signed by Carlyle Paniagua MD 05/18/25 10:43:
Studies reviewed.
I have personally examined the patient. I reviewed and agree with the RANGE ECOLOGIST's Note.
My addenda:
Awake, alert, interactive. No acute distress.
Speech intact.
Follows 2-step requests w/o difficulty. No tremor.
Extra-ocular movements grossly intact.
Facial movements full and symmetric. Hearing intact to normal conversational volume.
Normal UE movements bilaterally.
Neck: full ROM.
Chest: no dyspnea
Heart: no JVD
Ext: (-) Clubbing, (-) Cyanosis, (-) Edema
IMPRESSIONS/RECOMMENDATIONS:
Abrupt onset of change in mental status with the patient experiencing 2 episodes of generalized tonic-clonic movements during acute onset eclampsia
Patient had changes on CT of head which was suggestive of posterior reversible encephalopathy syndrome and currently is experiencing continued although improving visual changes
Would perform MRI of brain in the next 24 hours if the patient continues to have visual changes
Would not add additional antiseizure medications
Would continue magnesium as per gynecology
Supportive care
D/W patient / family / nursing
All questions answered.
Will continue to follow patient.
Original Note:
Documented by User: Margot Díaz NP 05/18/25 09:56
Consultation - Neurology 4
-
CONSULTING PHYSICIAN: Carlyle Paniagua MD
REFERRING PHYSICIAN: Hospitalists/Dr. Navarro
DICTATED BY: NICKO Harrison
DATE/TIME OF REQUEST: 05/17/25
DATE/TIME OF CONSULTATION: 05/18/25
Reason for Consultation: Seizure
History of Present Illness:
This is a 35-year-old 31 weeks right-handed female who has presented to the hospital on 05/17/25 with report of confusion, headache, and seizure-like activity. Patient cannot entirely recall the events of the past 24 hours and some of this
information is obtained from her significant other at bedside. Patient reports that the last thing she can recall is lying in bed yesterday morning feeling sick. She was nauseous, had some vomiting, and had a headache. The next thing she remembers
is waking up in her current ICU room.
Her significant other reports that she was not feeling well yesterday (05/17/25) morning, which they attributed to morning sickness. He went to the store to get easily digestible food for her to eat, and upon returning home he notes that she seemed
confused, said she felt dizzy, and then proceeded to have whole-body shaking. He notes that she was laying on her left side, her right hand was up above the covers and she was stiff and shaking with saliva coming from her mouth. He called 911. She
then spontaneously stopped shaking and proceeded to have labored breathing/making a snoring/rattling sound. He denies any incontinence of bladder/bowel or tongue biting. Upon EMS arrival she was post-ictal and they administered magnesium.
Systolic blood pressure was 160 and she given labetalol. CT head was obtained and is suggestive of posterior reversible encephalopathy syndrome (PRES). In CT, she had a second witnessed seizure and was given diazepam. She was taken for an emergent
. This morning (05/18/25), patient reports that she is still not 100% back to baseline. Her vision feels blurry and somewhat double, which she describes as objects 'bouncing back and forth.' She also notes mild surgical site discomfort. She
denies any headache, dizziness, speech difficultly, numbness, and weakness.
Past Medical History: Hypothyroidism
Surgical History:
Family History: Reviewed and noncontributory.
Social History: Denies tobacco, alcohol, and illicit drug use.
Allergies: No known allergies.
Home Medications: See below.
Review of Symptoms:
Patient denies any fever, headache, chest pain, shortness of breath, GI or symptoms.
�Per the HPI.�All systems are reviewed negative except above.
Physical Exam:
The patient is afebrile, abdomen is surgical, breathing is unlabored, skin is warm and dry.
Neurologic Examination:
The patient is awake but drowsy, oriented x 3. She is able to follow commands and answer questions appropriately. There is no aphasia or dysarthria. On cranial nerve assessment, pupils are 3 mm bilateral, round and reactive to light and
accommodation. Visual monte are full. Extraocular movements are intact. Right eye 1+ exophoria. Facial sensations are intact and bilaterally symmetrical, there is no facial asymmetry. Hearing is intact bilaterally to normal conversation volume.
Tongue palate and uvula are midline. Sternocleidomastoid strengths are full bilaterally. Motor strengths are 5/5 bilateral upper and lower extremities on medical research [place] scale. There is no drift or involuntary movement noted. Deep tendon
reflexes are 2+ bilateral upper and lower extremities and Babinski is absent bilaterally. Sensations of touch, temperature and vibration are intact and bilaterally symmetrical. Coordination is intact by finger to nose bilaterally.
Lab Results: See below.
Neuro Imaging:
1. CT Head 05/17/25: Mild amount of nearly symmetric low attenuation in the posterior cortical del cid matter and subcortical white matter of both occipital lobes most consistent with POSTERIOR REVERSIBLE ENCEPHALOPATHY SYNDROME (PRES).
Differentials for the patient's presentation include:
1. New onset seizure, likely due to eclampsia.
2. Hypertensive urgency with CT head imaging suggestive of PRES.
Patient has the following risk factors for their symptoms: HTN,
Recommendations:
-If patient is not 100% back to baseline tomorrow (05/19/25), will then proceed with obtaining MRI brain w/ and w/o contrast imaging for further evaluation. Otherwise, no clear indication for further neurological imaging at this point.
-No indication for starting antiseizure medication at this time as this was likely a provoked event due to eclampsia.
-Goal normotension.
-Supportive care.
Discussed patient care with: Dr. Paniagua, the patient, patient's spouse
Vital Signs and Labs
-
Vital Signs and Labs:
Vital Signs
Temp Pulse Resp BP Pulse Ox
97.7 F 81 17 122/83 99
05/18/25 07:37 05/18/25 09:00 05/18/25 09:00 05/18/25 09:00 05/18/25 09:10
Lab Results
05/18/25 03:33
PT 13.3 Sec (11.4-14.6) 05/17/25 14:09
INR 0.98 05/17/25 14:09
APTT 18.4 Sec (23.4-35.0) L 05/17/25 14:09
Sodium 133 mmol/L (135-145) L 05/18/25 03:33
Potassium 3.6 mmol/L (3.5-5.1) 05/18/25 03:33
BUN 8 mg/dl (7-17) 05/18/25 03:33
Glucose 134 mg/dl (70-99) H 05/18/25 03:33
Calcium 5.6 mg/dl (8.4-10.2) L* D 05/18/25 03:33
Phosphorus 3.6 mg/dl (2.5-4.5) 05/18/25 03:33
Ur Buprenorphine Negative (Negative) 05/17/25 20:06
Medications
-
Active Medications
Generic Name Dose Route Start Last Admin
Trade Name Freq PRN Reason Stop Dose Admin
Calcium Gluconate 1,000 mg 05/17/25 13:44
Calcium Gluconate 10% (100 Mg/Ml) 10 Ml Vial IV 06/14/25 13:43
PRN PRN
mag toxicity or resp rate <12
Calcium Gluconate 1,000 mg 05/17/25 13:41
Calcium Gluconate 10% (100 Mg/Ml) 10 Ml Vial IV 06/14/25 13:40
PRN PRN
mag toxicity or resp rate <12
Diazepam 10 mg 05/17/25 16:00
Diazepam 10 Mg/2 Ml Inj IV 06/14/25 15:59
Q4HPRN PRN
Seizure
Magnesium Sulfate 40 gram in 1,000 mls @ 50 mls/hr 05/17/25 14:00 05/17/25 17:27
Magnesium Sulfate 40 Gram IV 05/18/25 13:59 Not Given
.Q20H CRIS
Fentanyl Citrate 1,000 mcg in 100 mls @ 0 mls/hr 05/17/25 16:00 05/17/25 16:24
Sublimaze IV 100 mls
PER PROTOCOL CRIS Administration
Protocol
Per Protocol
Nicardipine/Sodium Chloride 40 mg in 200 mls @ 0 mls/hr 05/17/25 16:00 05/17/25 22:46
Cardene IV 200 mls
PER PROTOCOL CRIS Administration
Protocol
Per Protocol
Oxytocin/Sodium Chloride 30 unit in 500 mls @ 42 mls/hr 05/17/25 17:00 05/17/25 20:01
Pitocin 30 Units/Nss 500 Ml IV 05/18/25 16:59 500 mls
DIRECTED CRIS Administration
Lactated Ringer's 1,000 mls @ 75 mls/hr 05/17/25 21:00 05/17/25 21:48
Lr IV 1,000 mls
.[id number] CRIS Administration
Acetaminophen 1,000 mg in 100 mls @ 400 mls/hr 05/17/25 21:09 05/18/25 08:41
Ofirmev IV 05/18/25 18:59 100 mls
QID@0200,0800,1400,2000 CRIS Administration
Protocol
Ketorolac Tromethamine 30 mg 05/17/25 18:51
Ketorolac 30 Mg/Ml Injection IV 05/22/25 18:50
Q6HPRN PRN
moderate to severe pain
Labetalol HCl 10 mg 05/17/25 15:55 05/17/25 17:00
Labetalol Hcl 5 Mg/1 Ml (20 Mg/4 Ml) Injection IV 06/14/25 15:54 10 mg
Q4HPRN PRN Administration
SBP > 160
Levothyroxine Sodium 25 mcg 05/18/25 10:00
Levothyroxine 25 Mcg Tablet PO 06/15/25 09:59
DAILY @ 0600 CRIS
Pantoprazole Sodium 40 mg 05/17/25 16:00 05/18/25 08:41
Pantoprazole Sodium 40 Mg/10 Ml Vial IV 06/14/25 15:59 40 mg
DAILY CRIS Administration
Polyethylene Glycol 17 grams 05/18/25 08:00
Polyethylene Glycol Powder 17 Grams Packet TUBE 06/15/25 07:59
DAILY CRIS
Sodium Chloride 10 ml 05/17/25 18:00 05/18/25 08:41
Sodium Chloride 0.9% (Preservative Free) 10 Ml Vial IV 06/14/25 17:59 10 ml
DAILY CRIS Administration
Sodium Chloride 0 flush 05/18/25 07:00
Sodium Chloride 0.9% (Flush) Syringe IV 06/15/25 06:59
PER PROTOCOL CRIS
Home Medications
�Medication �Instructions �Recorded
levothyroxine 25 mcg tablet 25 mcg PO DAILY 05/17/25
(Synthroid)

Documented by User: Carlyle Paniagua MD 05/18/25 10:32
Past History
Past History
ED Past Medical History: Hypothyroidism and Other (Eclampsia, G1, P1)
ED Past Surgical History:
Social History
Tobacco: Non-smoker
Alcohol: None
Personal:
Living: with family
Family History
Family History: Other (Reviewed and noncontributory)
Medications
-
Medications:
Generic Name Dose Route Start Last Admin
Trade Name Freq PRN Reason Stop Dose Admin
Calcium Gluconate 1,000 mg 05/17/25 13:41
Calcium Gluconate 10% (100 Mg/Ml) 10 Ml Vial IV 06/14/25 13:40
PRN PRN
mag toxicity or resp rate <12
Diazepam 10 mg 05/17/25 16:00
Diazepam 10 Mg/2 Ml Inj IV 06/14/25 15:59
Q4HPRN PRN
Seizure
Magnesium Sulfate 40 gram in 1,000 mls @ 50 mls/hr 05/17/25 14:00 05/18/25 10:08
Magnesium Sulfate 40 Gram IV 05/18/25 13:59 1,000 mls
.Q20H CRIS Administration
Oxytocin/Sodium Chloride 30 unit in 500 mls @ 42 mls/hr 05/17/25 17:00 05/17/25 20:01
Pitocin 30 Units/Nss 500 Ml IV 05/18/25 16:59 500 mls
DIRECTED CRIS Administration
Lactated Ringer's 1,000 mls @ 75 mls/hr 05/17/25 21:00 05/17/25 21:48
Lr IV 1,000 mls
.[id number] CRIS Administration
Acetaminophen 1,000 mg in 100 mls @ 400 mls/hr 05/17/25 21:09 05/18/25 08:41
Ofirmev IV 05/18/25 18:59 100 mls
QID@0200,0800,1400,2000 CRIS Administration
Protocol
Ketorolac Tromethamine 30 mg 05/17/25 18:51
Ketorolac 30 Mg/Ml Injection IV 05/22/25 18:50
Q6HPRN PRN
moderate to severe pain
Labetalol HCl 10 mg 05/17/25 15:55 05/17/25 17:00
Labetalol Hcl 5 Mg/1 Ml (20 Mg/4 Ml) Injection IV 06/14/25 15:54 10 mg
Q4HPRN PRN Administration
SBP > 160
Levothyroxine Sodium 25 mcg 05/18/25 10:00 05/18/25 10:17
Levothyroxine 25 Mcg Tablet PO 06/15/25 09:59 25 mcg
DAILY @ 0600 CRIS Administration
Polyethylene Glycol 17 grams 05/18/25 10:00
Polyethylene Glycol Powder 17 Grams Packet PO 06/15/25 07:59
DAILY CRIS
Sodium Chloride 0 flush 05/18/25 07:00
Sodium Chloride 0.9% (Flush) Syringe IV 06/15/25 06:59
PER PROTOCOL CRIS
--- NOTE | 2025-05-18 09:30 | PTCARENOTE ---
Upon neuro exam with Dr. Paniagua, patient does admit to some double vision that she feels has improved since overnight. No other neuro changes noted.
[2025-05-18] MEDS: MAGNESIUM SULFATE 40 GRAM 1000 IV (10:08)
[2025-05-18] MEDS: SYNTHROID 25 MCG PO (10:17)
[2025-05-18 10:29] LABS: Blood Urea Nitrogen 8 mg/dl (7-17); Calcium 5.1 mg/dl (8.4-10.2); Carbon Dioxide 22 mmol/L (22-30); Chloride 107 mmol/L (98-107); Estimated Creatinine Clearance 120 ml/min; Glucose 110 mg/dl (70-99); Magnesium 6.7 mg/dl (1.6-2.3); Potassium 3.6 mmol/L (3.5-5.1); Sodium 132 mmol/L (135-145); eGFR > 60.00
[2025-05-18] MEDS: LR 1000 IV (10:30)
--- NOTE | 2025-05-18 10:38 | PTCARENOTE ---
Patient tolerated wean, CPAP 5 pressure support 5. Sp02 98-100%. Extubated 0910 per RT Flora & Dr. Gabriel. Patient's speech slow but clear. Currently on room air, Sp02 98%. Lungs sound coarse throughout. Dr. Paniagua in to examine patient. Pt
reports double vision that is improving. Fiance at bedside.
Lab work sent. A-line removed w/o incident. LDRP Nurse Elizabeth at bedside, updated on POC. Magnesium and LR infusing per MAR.
Pt able to swallow w/o issues. Call christy within reach. HOB 30 degrees.
Plan for MRI tomorrow.
--- NOTE | 2025-05-18 12:13 | PTCARENOTE ---
Assessment unchanged. Dr. Gabriel and Dr. Mario updated on lab work from earlier today. Ok to transfer to LDRP. Reported called to Elizabeth RN on LDRP. Patient placed on telemetry pack for monitoring. Patient transferred via bed with belongings.
Fiance at bedside.
--- NOTE | 2025-05-18 13:36 | CM ---
Patient with eclampsia. had on this hospitalization, baby boy. Patient lives with her fiance' in a 1st floor apartment with no steps to enter. 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 No DME. No in-home
services. No HC-POA. No VA benefits. No psychiatric hospitalizations. PCP is [facility] in [place]. Pharmacy is [facility] on [address] in . Discharge POC: Anticipate home with no skilled needs. Transferred to L & D Room # 815-2.
[2025-05-18] MEDS: TORADOL 30 MG IV (20:42)
[2025-05-19] MEDS: MOTRIN 600 MG PO ×4 (03:08→22:32)
[2025-05-19] MEDS: TYLENOL 650 MG PO ×4 (03:08→22:32)
[2025-05-19 04:41] LABS: Hematocrit 26.8 % (37.0-47.0); Hemoglobin 9.0 g/dL (12.0-16.0); Mean Corp Hgb Conc. 33.6 g/dL (33.0-37.0); Mean Corpuscular Volume 92.4 fL (81.0-99.0); Platelet Count 154 10^3/uL (130-400); Red Cell Dist. Width 12.9 % (11.5-14.5)
[2025-05-19 05:20] LABS: ALT (SGPT) 19 U/L (0-35); AST (SGOT) 54 U/L (14-36); Albumin 2.7 g/dl (3.5-5.0); Alkaline Phosphatase 80 U/L (38-126); Blood Urea Nitrogen 11 mg/dl (7-17); Calcium 6.2 mg/dl (8.4-10.2); Carbon Dioxide 26 mmol/L (22-30); Chloride 110 mmol/L (98-107); Estimated Creatinine Clearance 90 ml/min; Glucose 81 mg/dl (70-99); Potassium 4.0 mmol/L (3.5-5.1); Sodium 135 mmol/L (135-145); Total Protein 5.3 g/dl (6.3-8.2); eGFR > 60.00
[2025-05-19] MEDS: SYNTHROID 25 MCG PO (06:00)
--- NOTE | 2025-05-19 06:41 | W.PN.HOSP.TC ---
Addendum entered and electronically signed by Yaw Carreno MD 05/19/25 14:01:
Eclampsia which is defined by seizure and uncontrolled hypertension/hypertensive urgency, no UA to check for proteinuria
S/p delivery of male fetus via , transferred to [facility]
S/p magnesium sulfate drip and currently on oxytocin
inci care insion by OB
Being managed by Ob
Fortunately without evidence of help syndrome as platelets have been greater than 150, LFTs within normal and bili was less than 0.5 therefore low clinical suspicion for hemolytic anemia/schistocytes to be present on peripheral blood smear however
was not checked
Seizures secondary to eclampsia
While in the ED CT brain completed fortunately without bleed or lesions. Per documentation there is no noted evidence of focal neurological deficit, blown pupils to suspect bleed or stroke. From documentation did not sound as though she was in
status epilepticus however did have another seizure while in CT.
Neurology consulted. Continues to have blurry vision, per neurology will perform MRI brain in the next 24 hours not back to baseline
Continue magnesium per gynecology
Would not add additional antiepileptic agents at this time
Still intermittently having double/fuzzy vision, will obtain brain MRI, discussed this with neurology
Hypothyroidism
Continue levothyroxine
Acute hypoxemic respiratory failure requiring mechanical ventilation during and post .
Extubated on 05/18/2025
Anemia likely acute on chronic
Without evidence of acute active bleeding
Will continue to follow hemoglobin and for evidence of bleeding
Hemodynamically stable
Transfuse if <7
Read, reviewed, and agree. See same day progress note for additional details. Time spent reviewing records in EMR, med rec, consults, notes, d/w consultants, nursing, family, and CM
Original Note:
Today's Communication/Plan
-
Plan reviewed with attending
Brain MRI today
PO nicardipine per OB
Assessment / Plan
Assessment / Plan
35yoF presented initially 31 weeks with eclampsia, headache, vomiting, seizing at home. Her partner called EMS, en route gave magnesium. Pt received Mg and labetalol in ED, had another seizure in CT scanner. Intubated and had emergency
, brought to ICU intubated and sedated. Baby sent to [facility].
Pt was being weaned off sedation still intubated in morning. Now extubated. She reports continued double vision that is improving. She denies headache, confusion. Reports mild abdominal discomfort, no acute pain.
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
Pt presented with seizures and elevated BP, now resolving s/p c section on Mg and nicardipine drip 2.5mg. AFVSS. LFTs WNL, no concern for HELLP.
Managed by OB. On L and D floor now. Transitioned to PO nifedipine. MRI brain for continued blurry vision.
#Eclampsia with eivdence of HTN and seizures
- Mg managed by OB- Stopped after 24hrs
- No seizures since removal of placenta
- HTN improving on nicardipine with PRN labetalol. Nicardipine drip stopped transitioned to PO
- Holding brain MRI. because vision continued to be doubled, brain MRI.
- Neurology signed off. No antiepileptics recommended.
#s/p 31wk
#anemia
- s/p c section
- Monitor h and h
- Transfuse if Hgb <7
#hypocalcemia
- replete
- ECG QTc 413
Chronic:
hypothyroid
- continue
Diet: as tolerated
Code:full
Anticipated Discharge: Within 24 hours
Subjective/Interval History
-
Date of Service: May 19, 2025
Pt reports improving blurry vision but some bouts throughout the night. She conitnues to report blurry vision different from baseline that comes and goes. Otherwise, feeling better with pain controlled on tylenol and ibuprofen.
Objective Data
-
Labs:
Laboratory Results
05/19/25
04:00
WBC 10.5
Hgb 9.0 L
Hct 26.8 L
Plt Count 154
Sodium 135
Potassium 4.0
Chloride 110 H
Carbon Dioxide 26
BUN 11
Creatinine 0.8
Glucose 81
Calcium 6.2 L*
Total Bilirubin 0.2
AST 54 H
ALT 19
Alkaline Phosphatase 80
Vital Signs:
Vital Signs
Temp Pulse Resp BP Pulse Ox
98.5 F 84 17 129/86 98
05/18/25 11:26 05/18/25 12:00 05/18/25 12:00 05/18/25 12:00 05/18/25 12:00
I&O
05/17/25 05/18/25 05/19/25
06:59 06:59 06:59
Intake Total 2544.4 / 2680.3 971.8 / 971.8
Output Total 1335 / 1385 485 / 485
Balance 1209.4 / 1295.3 486.8 / 486.8
Review of Systems
-
History Source: Patient
All other systems: Reviewed and negative
EENT: Reports Blurry Vision
Physical Exam
-
General: Well Developed, Well Nourished, No Apparent Distress and Comfortable
HEENT: Normocephalic, Atraumatic and Moist Mucous Membranes
Respiratory: Clear to Auscultation and Non Labored Respirations
Cardiac: Regular Rhythm and S1/S2
GI: Soft, Nondistended and Tender (mild)
Musculoskeletal: No Edema
Skin: Warm and Dry
Neuro: AO x 3 and Nonfocal/Grossly Intact (blurry vision comes and goes)
--- NOTE | 2025-05-19 06:56 | W.PN.UPDATE ---
Update Note
Progress Note Update
No issues overnight except complaining of headache and nausea. Received 2 doses IV Premarin, reports only one pad overnight, and not full. No abdominal pain or dizziness. Hungry.
First dose Provera given overnight
Labs pending this Am
Advised pt/mother that will stop premarin, do not see need for pt to go to OR, await labs. also advised them that headache could be related to anemia, and tht pt may benefit form one unit pRBC's. Will decide based on labs.
[2025-05-19] MEDS: MIRALAX PO (07:45)
[2025-05-19] MEDS: PROCARDIA XL (EXTENDED RELEASE) 30 MG PO ×2 (07:47→16:04)
[2025-05-19] MEDS: COLACE 100 MG PO ×2 (07:47→20:09)
[2025-05-19] MEDS: FEOSOL 325 MG PO (07:47)
--- NOTE | 2025-05-19 09:45 | W.PN.NEURO.1 ---
Addendum entered and electronically signed by Carlyle Paniagua MD 05/19/25 10:44:
Studies reviewed.
I have personally examined the patient. I reviewed and agree with the BIO MEDICAL TECHNICIAN's Note.
My addenda:
Awake, alert, interactive. No acute distress.
Speech intact.
Follows 2-step requests w/o difficulty. No tremor.
Extra-ocular movements grossly intact.
Facial movements full and symmetric. Hearing intact to normal conversational volume.
Normal UE movements bilaterally.
Neck: full ROM.
Chest: no dyspnea
Heart: no JVD
Ext: (-) Clubbing, (-) Cyanosis, (-) Edema
IMPRESSIONS/RECOMMENDATIONS:
Abrupt onset of change in mental status associated with eclampsia, now resolved
As this was a provoked seizure, will not at this time report to [facility]
No indication for antiseizure medications at this time
No indication at this time patient would benefit from additional neuroimaging as she is not experiencing symptoms
Risks of the patient experiencing recurrent symptoms were reviewed with the patient and her spouse.
D/W patient / family / nursing
All questions answered.
Will continue to follow as needed.
Original Note:
Documented by User: Margot Díaz NP 05/19/25 09:57
Today's Communication / Plan
-
.
Neuro Assessment/Plan
Assessment
IMPRESSIONS/RECOMMENDATIONS:
Abrupt onset of change in mental status with the patient experiencing 2 episodes of generalized tonic-clonic movements during acute onset eclampsia
Patient had changes on CT of head which was suggestive of posterior reversible encephalopathy syndrome, visual changes and confusion have now resovled.
-CT Head 05/17/25: Mild amount of nearly symmetric low attenuation in the posterior cortical del cid matter and subcortical white matter of both occipital lobes most consistent with POSTERIOR REVERSIBLE ENCEPHALOPATHY SYNDROME (PRES).
Plan
-Do not see a role for further neurological imaging as symptoms have resolved; if vision changes/confusion recur, would obtain MRI Brain imaging.
-No indication for starting antiseizure medication at this time as this was likely a provoked event due to eclampsia.
-Goal normotension.
-Supportive care.
Subjective/Objective
Subjective Data
Date of Service: May 19, 2025
No acute events overnight. Patient reports that her double vision persisted intermittently yesterday but completely resolved by yesterday afternoon and is back to baseline now. She denies any headache, dizziness, speech/swallow difficulty, numbness,
and focal weakness.
Objective Data
Vital Signs
Temp Pulse Resp BP Pulse Ox
98.5 F 78 17 143/91 98
05/18/25 11:26 05/19/25 07:47 05/18/25 12:00 05/19/25 07:47 05/18/25 12:00
Lab Results
05/19/25 04:00
05/19/25 04:00
PT 13.3 Sec (11.4-14.6) 05/17/25 14:09
INR 0.98 05/17/25 14:09
APTT 18.4 Sec (23.4-35.0) L 05/17/25 14:09
Sodium 135 mmol/L (135-145) 05/19/25 04:00
Potassium 4.0 mmol/L (3.5-5.1) 05/19/25 04:00
BUN 11 mg/dl (7-17) 05/19/25 04:00
Glucose 81 mg/dl (70-99) 05/19/25 04:00
Calcium 6.2 mg/dl (8.4-10.2) L* 05/19/25 04:00
Phosphorus 3.6 mg/dl (2.5-4.5) 05/18/25 03:33
Ur Buprenorphine Negative (Negative) 05/17/25 20:06
Patient Allergies
No Known Allergies Allergy (Verified 05/17/25 14:08)
Review of Systems
-
History Source: Patient
EENT: Negative Eye Pain, Decreased Vision or Swallowing Difficulty
Respiratory: Negative Cough or Trouble Breathing
Cardiac: Negative Chest Pain or Palpitations
Neuro: Negative Dizzy, Headache, Weakness, Numbness, Ataxia, Tremors or Speech Problem
Physical Exam
-
General: Well Developed, Well Nourished and No Apparent Distress
Eyes: No Ptosis and PERRLA
HEENT: Normocephalic and Atraumatic
Neck: Full Range of Motion
Respiratory: No Dyspnea
Psych: Unremarkable
Extended Neurological Exam
Mood & Affect: Mood Unremarkable and Affect Unremarkable
Attention Span & Concentration: Awake, Alert and Interactive
Memory: Unremarkable and Able to Recall
Tremor: Hand Tremor Absent and Head Tremor Absent
Involuntary Movement: None
Speech: Quality Unremarkable, Quantity Unremarkable and Rate of Production Unremarkable
Cranial Nerve II: Left Eye: Pupillary Reactivity Unremarkable, Pupillary Size Unremarkable and Visual Galindo Intact
Cranial Nerve II: Right Eye: Pupillary Reactivity Unremarkable, Pupillary Size Unremarkable and Visual Galindo Intact
Cranial Nerves III, IV, : Extraocular Movement: Extraocular Movement Full in all Directions
Cranial Nerve VII: Facial Symmetry: Normal Facial Symmetry
Cranial Nerve VIII: Hearing: Unremarkable Hearing to Normal Conversational Volume
Cranial Nerves IX, X: Palate Movement: Palate Elevation Symmetric
Cranial Nerve XI: Shoulder Shrug: Unremarkable
Cranial Nerve XII: Tongue Protusion: Midline
Muscle Strength, Overall: Full Throughout
Pronator Drift: No Drift in Upper Extremities
Data Reviewed
-
CT Head: Report Reviewed and Image Reviewed
Labs: Report Reviewed
Reviewed with: Physician, Patient and Family
Medications
-
Active Medications
Generic Name Dose Route Start Last Admin
Trade Name Freq PRN Reason Stop Dose Admin
Acetaminophen 650 mg 05/18/25 20:49 05/19/25 09:44
Acetaminophen 325 Mg Tablet PO 06/15/25 20:48 650 mg
Q4HPRN PRN Administration
mild pain
Calcium Carbonate 400 mg 05/18/25 20:49
Calcium Antacid 200 Mg (Calcium Carbonate 500 Mg) Chew Tablet PO 06/15/25 20:48
Q6HPRN PRN
indigestion
Calcium Gluconate 1,000 mg 05/17/25 13:41
Calcium Gluconate 10% (100 Mg/Ml) 10 Ml Vial IV 06/14/25 13:40
PRN PRN
mag toxicity or resp rate <12
Diphtheria/Tetanus/Acell Pertussis 0.5 ml 05/21/25 08:00
Adacel (Tetanus/Dipth/Acellular Pertussis) 0.5 Ml IM 05/21/25 08:01
.ONCE ONE
Docusate Sodium 100 mg 05/19/25 08:00 05/19/25 07:47
Docusate Sodium 100 Mg Capsule PO 06/16/25 07:59 100 mg
BID CRIS Administration
Ferrous Sulfate 325 mg 05/19/25 08:00 05/19/25 07:47
Ferrous Sulfate 325 Mg Tablet PO 06/16/25 07:59 325 mg
DAILY CRIS Administration
Ibuprofen 600 mg 05/19/25 02:42 05/19/25 09:44
Ibuprofen 600 Mg Tablet PO 06/16/25 02:41 600 mg
Q6HPRN PRN Administration
cramps
Labetalol HCl 10 mg 05/17/25 15:55 05/17/25 17:00
Labetalol Hcl 5 Mg/1 Ml (20 Mg/4 Ml) Injection IV 06/14/25 15:54 10 mg
Q4HPRN PRN Administration
SBP > 160
Levothyroxine Sodium 25 mcg 05/18/25 10:00 05/19/25 06:00
Levothyroxine 25 Mcg Tablet PO 06/15/25 09:59 25 mcg
DAILY @ 0600 CRIS Administration
Metoclopramide HCl 10 mg 05/18/25 20:49
Metoclopramide 10 Mg/2 Ml Vial IV 06/15/25 20:48
Q6HPRN PRN
nausea/vomiting
Nifedipine 30 mg 05/19/25 08:00 05/19/25 07:47
Nifedipine 30 Mg Extended Release Tablet PO 06/16/25 07:59 30 mg
DAILY CRIS Administration
Oxycodone HCl 5 mg 05/18/25 20:49
Oxycodone 5 Mg Regular Release Tablet PO 06/01/25 20:48
Q4HPRN PRN
moderate pain
Oxycodone HCl 10 mg 05/18/25 20:49
Oxycodone 10 Mg Regular Release Tablet PO 06/01/25 20:48
Q4HPRN PRN
severe pain
Polyethylene Glycol 17 grams 05/18/25 10:00 05/19/25 07:45
Polyethylene Glycol Powder 17 Grams Packet PO 06/15/25 07:59 Not Given
DAILY CRIS
Sennosides 17.2 mg 05/18/25 20:49
Sennosides (Senokot) 8.6 Mg Tablet PO 06/15/25 20:48
HSPRN PRN
constipation
Simethicone 80 mg 05/18/25 20:49
Simethicone 80 Mg Chewable Tablet PO 06/15/25 20:48
TIDPRN PRN
flatulence
Sodium Chloride 0 flush 05/18/25 07:00
Sodium Chloride 0.9% (Flush) Syringe IV 06/15/25 06:59
PER PROTOCOL CRIS
Home Medications
�Medication �Instructions �Recorded
levothyroxine 25 mcg tablet 25 mcg PO DAILY Thyroid 05/17/25
(Synthroid)

Documented by User: Carlyle Paniagua MD 05/19/25 10:38
Past History
Past History
ED Past Medical History: Hypothyroidism and Other (Eclampsia, G1, P1)
ED Past Surgical History: (June 2025)
Social History
Tobacco: Non-smoker
Alcohol: None
Personal:
Living: with family
Family History
Family History: Other (Reviewed and noncontributory)
Medications
-
Medications:
Generic Name Dose Route Start Last Admin
Trade Name Freq PRN Reason Stop Dose Admin
Acetaminophen 650 mg 05/18/25 20:49 05/19/25 09:44
Acetaminophen 325 Mg Tablet PO 06/15/25 20:48 650 mg
Q4HPRN PRN Administration
mild pain
Calcium Carbonate 400 mg 05/18/25 20:49
Calcium Antacid 200 Mg (Calcium Carbonate 500 Mg) Chew Tablet PO 06/15/25 20:48
Q6HPRN PRN
indigestion
Calcium Gluconate 1,000 mg 05/17/25 13:41
Calcium Gluconate 10% (100 Mg/Ml) 10 Ml Vial IV 06/14/25 13:40
PRN PRN
mag toxicity or resp rate <12
Diphtheria/Tetanus/Acell Pertussis 0.5 ml 05/21/25 08:00
Adacel (Tetanus/Dipth/Acellular Pertussis) 0.5 Ml IM 05/21/25 08:01
.ONCE ONE
Docusate Sodium 100 mg 05/19/25 08:00 05/19/25 07:47
Docusate Sodium 100 Mg Capsule PO 06/16/25 07:59 100 mg
BID CRIS Administration
Ferrous Sulfate 325 mg 05/19/25 08:00 05/19/25 07:47
Ferrous Sulfate 325 Mg Tablet PO 06/16/25 07:59 325 mg
DAILY CRIS Administration
Ibuprofen 600 mg 05/19/25 02:42 05/19/25 09:44
Ibuprofen 600 Mg Tablet PO 06/16/25 02:41 600 mg
Q6HPRN PRN Administration
cramps
Labetalol HCl 10 mg 05/17/25 15:55 05/17/25 17:00
Labetalol Hcl 5 Mg/1 Ml (20 Mg/4 Ml) Injection IV 06/14/25 15:54 10 mg
Q4HPRN PRN Administration
SBP > 160
Levothyroxine Sodium 25 mcg 05/18/25 10:00 05/19/25 06:00
Levothyroxine 25 Mcg Tablet PO 06/15/25 09:59 25 mcg
DAILY @ 0600 CRIS Administration
Metoclopramide HCl 10 mg 05/18/25 20:49
Metoclopramide 10 Mg/2 Ml Vial IV 06/15/25 20:48
Q6HPRN PRN
nausea/vomiting
Nifedipine 30 mg 05/19/25 08:00 05/19/25 07:47
Nifedipine 30 Mg Extended Release Tablet PO 06/16/25 07:59 30 mg
DAILY CRIS Administration
Oxycodone HCl 5 mg 05/18/25 20:49
Oxycodone 5 Mg Regular Release Tablet PO 06/01/25 20:48
Q4HPRN PRN
moderate pain
Oxycodone HCl 10 mg 05/18/25 20:49
Oxycodone 10 Mg Regular Release Tablet PO 06/01/25 20:48
Q4HPRN PRN
severe pain
Polyethylene Glycol 17 grams 05/18/25 10:00 05/19/25 07:45
Polyethylene Glycol Powder 17 Grams Packet PO 06/15/25 07:59 Not Given
DAILY CRIS
Sennosides 17.2 mg 05/18/25 20:49
Sennosides (Senokot) 8.6 Mg Tablet PO 06/15/25 20:48
HSPRN PRN
constipation
Simethicone 80 mg 05/18/25 20:49
Simethicone 80 Mg Chewable Tablet PO 06/15/25 20:48
TIDPRN PRN
flatulence
Sodium Chloride 0 flush 05/18/25 07:00
Sodium Chloride 0.9% (Flush) Syringe IV 06/15/25 06:59
PER PROTOCOL CRIS
[2025-05-20] MEDS: MOTRIN 600 MG PO ×3 (05:16→20:52)
[2025-05-20] MEDS: TYLENOL 650 MG PO ×3 (05:16→20:53)
[2025-05-20] MEDS: SYNTHROID 25 MCG PO (05:17)
[2025-05-20] MEDS: PROCARDIA XL (EXTENDED RELEASE) 60 MG PO (05:58)
[2025-05-20] MEDS: COLACE 100 MG PO ×2 (08:28→20:52)
[2025-05-20] MEDS: MIRALAX PO (08:28)
[2025-05-20] MEDS: FEOSOL 325 MG PO (08:28)
[2025-05-20] MEDS: TRANDATE 10 MG IV (09:04)
--- NOTE | 2025-05-20 09:32 | W.PN.HOSP.TC ---
Addendum entered and electronically signed by Yaw Carreno MD 05/22/25 17:08:
I personally reviewed and evaluated this patient with the resident. I agree with above unless if otherwise stated below.
I personally reviewed labs and imaging employee relations consultant notes case management note
Addendum entered and electronically signed by Yaw Carreno MD 05/20/25 16:51:
Eclampsia which is defined by seizure and uncontrolled hypertension/hypertensive urgency, no UA to check for proteinuria
S/p delivery of male fetus via , transferred to [facility]
S/p magnesium sulfate drip and currently on oxytocin
inci care by OB
Being managed by Ob
Fortunately without evidence of help syndrome as platelets have been greater than 150, LFTs within normal and bili was less than 0.5 therefore low clinical suspicion for hemolytic anemia/schistocytes to be present on peripheral blood smear however
was not checked
Hypertension
Continue CCB, have room to titrate up
Add labetalol
Seizures secondary to eclampsia
While in the ED CT brain completed fortunately without bleed or lesions. Per documentation there is no noted evidence of focal neurological deficit, blown pupils to suspect bleed or stroke. From documentation did not sound as though she was in
status epilepticus however did have another seizure while in CT.
Neurology consulted. Continues to have blurry vision, per neurology will perform MRI brain in the next 24 hours not back to baseline
Continue magnesium per gynecology
Would not add additional antiepileptic agents at this time
MRI completed, neuro to continue to follow as an outpatient
Hypothyroidism
Continue levothyroxine
Acute hypoxemic respiratory failure requiring mechanical ventilation during and post .
Extubated on 05/18/2025
Anemia likely acute on chronic
Without evidence of acute active bleeding
Will continue to follow hemoglobin and for evidence of bleeding
Hemodynamically stable
Transfuse if <7
Read, reviewed, and agree. See same day progress note for additional details. Time spent reviewing records in EMR, med rec, consults, notes, d/w consultants, nursing, family, and CM
Original Note:
Today's Communication/Plan
-
Plan reviewed with attending
MRI redemonstrating PRES seen on CT.
We will continue following from afar. Please reach back out with changes, questions, or concerns.
Assessment / Plan
Assessment / Plan
35yoF presented initially 31 weeks with eclampsia, headache, vomiting, seizing at home. Her partner called EMS, en route gave magnesium. Pt received Mg and labetalol in ED, had another seizure in CT scanner. Intubated and had emergency
, brought to ICU intubated and sedated. Baby sent to [facility].
Pt was being weaned off sedation still intubated in morning. Now extubated. She reported continued double vision that is improving. She denies headache, confusion. Reports mild abdominal discomfort, no acute pain.
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
Pt presented with seizures and elevated BP, now resolving s/p c section on Mg and nicardipine drip 2.5mg. AFVSS. LFTs WNL, no concern for HELLP.
Managed by OB. On L and D floor now. Transitioned to PO nifedipine. MRI brain ordered for continued blurry vision.
Pt reports resolution of double vision. She saw some floaters overnight with resolution by rounds this morning. Discussed CT and MRI results that correlate with visual symptoms. HTN control per OB.
MRI: Signal alteration in the subcortical white matter of the bilateral occipital lobes with a similar distribution compared to the recent head CT from 05/17/2025. The imaging appearance is again considered most suspicious for posterior reversible
encephalopathy syndrome (PRES).
#Eclampsia with eivdence of HTN and seizures
- Mg managed by OB- Stopped after 24hrs
- No seizures since removal of placenta
- HTN improving on nicardipine with PRN labetalol. Nicardipine drip stopped transitioned to PO. Labetalol added this morning per OB
- Holding brain MRI. because vision continued to be doubled, brain MRI.
- Neurology signed off. No antiepileptics recommended.
#s/p 31wk
#anemia
- s/p c section
- Monitor h and h
- Transfuse if Hgb <7
#hypocalcemia
- replete
- ECG QTc 413
Chronic:
hypothyroid
- continue
Diet: as tolerated
Code:full
Anticipated Discharge: 24 - 48 hours
Subjective/Interval History
-
Date of Service: May 20, 2025
Pt reports resolving visual symptoms. She stated she saw some floaters overnight but reduced in frequency and no double vision anymore.
She reports some abdominal tenderness but improvement. Denies nausea, vomiting.
Objective Data
-
Vital Signs:
Vital Signs
Temp Pulse Resp BP Pulse Ox
98.5 F 96 17 165/107 98
05/18/25 11:26 05/20/25 09:04 05/18/25 12:00 05/20/25 09:04 05/18/25 12:00
I&O
05/19/25 05/20/25 05/21/25
06:59 06:59 06:59
Intake Total 971.8 / 971.8
Output Total 485 / 485
Balance 486.8 / 486.8
Review of Systems
-
All other systems: Reviewed and negative
Physical Exam
-
General: Well Developed, Well Nourished, No Apparent Distress and Comfortable
HEENT: Normocephalic, Atraumatic, Moist Mucous Membranes, Nose Appears Normal and Ears Appear Normal
Respiratory: Clear to Auscultation and Non Labored Respirations
Cardiac: Regular Rhythm and S1/S2
GI: Soft, Nondistended and Tender (sore, no focal tenderness)
Musculoskeletal: No Edema (nonpitting)
Skin: Warm
Neuro: AO x 3, No Motor Deficits and Nonfocal/Grossly Intact
Psych: Calm
[2025-05-20] MEDS: ATIVAN 0.5 MG PO (10:10)
--- NOTE | 2025-05-20 14:04 | CON.CAR ---
Addendum entered and electronically signed by Jessica Aly MD 05/20/25 18:09:
I saw and evaluated the patient, and I provided the substantive portion of the medical decision making.
I reviewed and agree with the note by Jennifer Arango and it accurately reflects our care.
I personally performed the medical decision making of the this encounter and my assessment and plan is below:
35-year-old female with a past medical history of hypothyroidism presented 31 weeks with headache vomiting and hypertension found to have a seizure x 2. She received magnesium and emergency was sent on 05/17/2025. She was
transiently on nicardipine drip now on Procardia at 60 mg with labetalol IV dosing as needed. She is feeling much better. She has no complaints today. Neurology has been following for her abnormal MRI showing posterior reversible encephalopathy
syndrome on exam she is pleasant in no apparent distress with a regular rate and rhythm no murmur rubs or gallops lungs are clear to auscultation bilaterally extremities are warm well-perfused. EKG tracing shows sinus tachycardia nonspecific ST
wave changes.
Assessment
Eclampsia
PRES
Anemia
s/p C/section at 31 wee
Plan
Will increase nifedipine and try to use a single agent. If needed can either add or transition to p.o. labetalol. Echocardiogram was ordered after our initial evaluation earlier today and is normal. Explained the future increased risk of
cardiovascular events and need for aggressive primary prevention. Trend hemoglobin. Neurology following.
Will follow.
Original Note:
Consultation
Consultation Request
Date/Time Consultation Requested: 05/20/25 1250
Date/Time Consultation Performed: 05/20/25 1300
Requesting Provider: Dr. Randhawa
Performing Provider: Jennifer MAHARAJ for Dr. Aly
Reason for Consultation: hypertension
Medical History
-
Chief Complaint: PAULA, vomiting, seizure
History of Present Illness:
35 y/o female with hypothyroidism was 31 weeks and came in with headache, vomiting, and seizure x 2. She was given magnesium and valium. BP elevated and was given labetalol. She had a on 05/17/25. Baby was transferred to [facility].
She was temporarily on nicardipine drip, but was transitioned off this and placed on procardia- she got two 30 mg doses yesterday and a 60 mg dose this AM. She also get 10 mg IV labetalol this AM. However, BP remains 150/106 per nursing at noon. She
was also have double vision, which has resolved, as well as floaters. Patients brain imaging shows evidence for posterior reversible encephalopathy syndrome (PRES), and neurology is on the case. At the time of my assessment, she is in no distress.
Partner at bedside. Baby Neto, I am told, is doing well. This is her first child. I congratulated them. She is feeling fine now. She denies any CP, SOB, or palpitations. PAULA free at present. No more double vision.
Past Medical History
Past Medical History: Hypothyroidism
Social History
Tobacco: Non-Smoker
Family History
Family History: Diabetes
Allergies / Home Medications
Allergy/AdvReac Type Severity Reaction Status Date / Time
No Known Allergies Allergy Verified 05/17/25 14:08
�Medication �Instructions �Recorded �Confirmed �Type
levothyroxine 25 mcg tablet 25 mcg PO DAILY Thyroid 05/17/25 05/18/25 History
(Synthroid)
Review of Systems
-
History Source: Patient
All other systems: Negative unless noted
Abdomen/GI: Nausea and Vomiting
Neurological: Headache and Other (seizure)
Physical Exam
Vital Signs
Temp Pulse Resp BP Pulse Ox
98.5 F 96 17 165/107 98
05/18/25 11:26 05/20/25 09:04 05/18/25 12:00 05/20/25 09:04 05/18/25 12:00
Lab Results
05/19/25 04:00
05/19/25 04:00
Physical Exam
General: Well Developed, Well Nourished and No Apparent Distress
HEENT: Normocephalic and Anicteric
Respiratory: Clear and Non Labored Respirations
Cardiac: Regular Rhythm
Musculoskeletal: No Edema
Skin: Warm and Dry
Neuro: AO x 3
Psych: Calm
Impression / Plan
-
Eclampsia:
-Seizures x 2 on 05/17/25. Magnesium and Valium were administered. was performed. Imaging reveals evidence for POSTERIOR REVERSIBLE ENCEPHALOPATHY SYNDROME (PRES). Neurology is on the case. Denies any further headaches or double vision.
-hypertension: patient was briefly on nicardipine drip. This was transitioned to nifedipine. She received two doses of 30 mg of nifedipine yesterday per OCT, and one dose of 60 mg this AM. She also received a dose of 10 mg IV labetalol this AM.
Most recent BP per nursing is 150/106. Will increase nifedipine dosing. Obtain echo. Can add labetalol PO if increase in nifedipine is not sufficient to get BP under control. Can use PRN IV labetalol as ordered if needed.
Hypothyroidism:
-TSH WNL this admit
-on Synthroid
Anemia:
-monitor
Data Reviewed
-
EKG: Tracing Personally Visualized and interpreted (ST at 119 BPM with non-specific ST/T abnormalities)
MRI: Report Reviewed by me (Signal alteration in the subcortical white matter of the bilateral occipital lobes with a similar distribution compared to the recent head CT from 05/17/2025. The imaging appearance is again considered most suspicious for
posterior reversible encephalopathy syndrome (PRES).)
Medical Tests (Nuc Med, Echo etc): Other (ordered echo)
Labs: Labs Reviewed by me
[2025-05-20] MEDS: PROCARDIA XL (EXTENDED RELEASE) 30 MG PO (15:29)
--- NOTE | 2025-05-20 15:37 | W.PN.NEURO.1 ---
Today's Communication / Plan
-
Supportive care.
Neuro Assessment/Plan
Assessment
-CT Head 05/17/25: Mild amount of nearly symmetric low attenuation in the posterior cortical del cid matter and subcortical white matter of both occipital lobes most consistent with POSTERIOR REVERSIBLE ENCEPHALOPATHY SYNDROME (PRES).
IMPRESSIONS:
Abrupt onset of change in mental status with the patient experiencing 2 episodes of generalized tonic-clonic movements during acute onset eclampsia
Patient had changes on CT of head which was suggestive of posterior reversible encephalopathy syndrome, visual changes and confusion have now resolved.
MRI of brain does also confirm posterior reversible encephalopathy syndrome
Plan
-No indication for starting antiseizure medication at this time as this was likely a provoked event due to eclampsia.
-Goal normotension.
-Supportive care.
Will follow as outpatient
Subjective/Objective
Subjective Data
Date of Service: May 20, 2025
Objective Data
Vital Signs
Temp Pulse Resp BP Pulse Ox
36.9 C 85 17 165/104 98
05/18/25 11:26 05/20/25 15:29 05/18/25 12:00 05/20/25 15:29 05/18/25 12:00
Lab Results
05/19/25 04:00
05/19/25 04:00
PT 13.3 Sec (11.4-14.6) 05/17/25 14:09
INR 0.98 05/17/25 14:09
APTT 18.4 Sec (23.4-35.0) L 05/17/25 14:09
Sodium 135 mmol/L (135-145) 05/19/25 04:00
Potassium 4.0 mmol/L (3.5-5.1) 05/19/25 04:00
BUN 11 mg/dl (7-17) 05/19/25 04:00
Glucose 81 mg/dl (70-99) 05/19/25 04:00
Calcium 6.2 mg/dl (8.4-10.2) L* 05/19/25 04:00
Phosphorus 3.6 mg/dl (2.5-4.5) 05/18/25 03:33
Ur Buprenorphine Negative (Negative) 05/17/25 20:06
Patient Allergies
No Known Allergies Allergy (Verified 05/17/25 14:08)
Data Reviewed
-
MRI Head: Report Reviewed and Image Reviewed
Reviewed with: Physician
Old Records: Summarized
[2025-05-21] MEDS: SYNTHROID 25 MCG PO (05:38)
[2025-05-21] MEDS: TYLENOL 650 MG PO ×4 (05:38→19:44)
[2025-05-21] MEDS: MOTRIN 600 MG PO ×3 (05:38→17:55)
[2025-05-21 06:18] LABS: Hematocrit 29.2 % (37.0-47.0); Hemoglobin 9.7 g/dL (12.0-16.0); Mean Corp Hgb Conc. 33.2 g/dL (33.0-37.0); Mean Corpuscular Volume 94.8 fL (81.0-99.0); Platelet Count 172 10^3/uL (130-400); Red Cell Dist. Width 12.4 % (11.5-14.5)
[2025-05-21 06:43] LABS: ALT (SGPT) 207 U/L (0-35); AST (SGOT) 277 U/L (14-36); Albumin 2.9 g/dl (3.5-5.0); Alkaline Phosphatase 90 U/L (38-126); Blood Urea Nitrogen 6 mg/dl (7-17); Calcium 8.5 mg/dl (8.4-10.2); Carbon Dioxide 28 mmol/L (22-30); Chloride 109 mmol/L (98-107); Estimated Creatinine Clearance 120 ml/min; Glucose 83 mg/dl (70-99); Potassium 3.8 mmol/L (3.5-5.1); Sodium 139 mmol/L (135-145); Total Protein 5.6 g/dl (6.3-8.2); eGFR > 60.00
--- NOTE | 2025-05-21 06:59 | W.PN.HOSP.TC ---
Addendum entered and electronically signed by Yaw Carreno MD 05/22/25 17:08:
I personally reviewed and evaluated this patient with the resident. I agree with above unless if otherwise stated below.
I personally reviewed labs and imaging salon sales consultant notes case management note
Addendum entered and electronically signed by Yaw Carreno MD 05/21/25 13:04:
Eclampsia which is defined by seizure and uncontrolled hypertension/hypertensive urgency, no UA to check for proteinuria
S/p delivery of male fetus via , transferred to [facility]
S/p magnesium sulfate drip and currently on oxytocin
inci care by OB
Being managed by Ob
Fortunately without evidence of help syndrome as platelets have been greater than 150, LFTs within normal and bili was less than 0.5 therefore low clinical suspicion for hemolytic anemia/schistocytes to be present on peripheral blood smear however
was not checked
Transaminitis
Concern for help syndrome although platelets hemoglobin bili stable
Mag sulfate resumed
Per cardiology could be related to nifedipine therefore discontinued and started on labetalol for tomorrow
If transaminitis getting worse would obtain right upper quadrant ultrasound
Hypertension
Continue CCB, have room to titrate up
Add labetalol
Seizures secondary to eclampsia
While in the ED CT brain completed fortunately without bleed or lesions. Per documentation there is no noted evidence of focal neurological deficit, blown pupils to suspect bleed or stroke. From documentation did not sound as though she was in
status epilepticus however did have another seizure while in CT.
Neurology consulted. Continues to have blurry vision, per neurology will perform MRI brain in the next 24 hours not back to baseline
Continue magnesium per gynecology
Would not add additional antiepileptic agents at this time
MRI completed, neuro to continue to follow as an outpatient
Hypothyroidism
Continue levothyroxine
Acute hypoxemic respiratory failure requiring mechanical ventilation during and post .
Extubated on 05/18/2025
Anemia likely acute on chronic
Without evidence of acute active bleeding
Will continue to follow hemoglobin and for evidence of bleeding
Hemodynamically stable
Transfuse if <7
Read, reviewed, and agree. See same day progress note for additional details. Time spent reviewing records in EMR, med rec, consults, notes, d/w consultants, nursing, family, and CM
Original Note:
Today's Communication/Plan
-
Plan reviewed with attending
Assessment / Plan
Assessment / Plan
35yoF presented initially 31 weeks with eclampsia, headache, vomiting, seizing at home. Her partner called EMS, en route gave magnesium. Pt received Mg and labetalol in ED, had another seizure in CT scanner. Intubated and had emergency
, brought to ICU intubated and sedated. Baby sent to [facility].
Pt was being weaned off sedation still intubated in morning. Now extubated. She reported continued double vision that is improving. She denies headache, confusion. Reports mild abdominal discomfort, no acute pain.
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
Pt presented with seizures and elevated BP, now resolving s/p c section on Mg and nicardipine drip 2.5mg. AFVSS. LFTs WNL, no concern for HELLP.
Managed by OB. On L and D floor now. Transitioned to PO nifedipine. MRI brain ordered for continued blurry vision.
Pt reports resolution of double vision. She saw some floaters overnight with resolution by rounds this morning. Discussed CT and MRI results that correlate with visual symptoms. HTN control per OB.
MRI: Signal alteration in the subcortical white matter of the bilateral occipital lobes with a similar distribution compared to the recent head CT from 05/17/2025. The imaging appearance is again considered most suspicious for posterior reversible
encephalopathy syndrome (PRES).
Transaminitis AST 277 ALT 207, AFVSS with continued hypertension. Cardiology following now. Consider RUQ US if clinical symptoms change.
#Eclampsia with evidence of HTN and seizures
- Mg managed by OB- Stopped after 24hrs . restarted mg drip with increasing LFTs
- No seizures since removal of placenta
- HTN improving on nicardipine with PRN labetalol. Nicardipine drip stopped transitioned to PO. Labetalol added yesterday. Cardiology following. nifedipine stopped
- brain MRI demosntrated PRES
- Neurology signed off. No antiepileptics recommended.
#s/p 31wk
#transaminitis
- possibly in setting of labetalol. OB added back fluids and Mg
- Watch carefully
#anemia
- s/p c section
- Monitor h and h
- Transfuse if Hgb <7
#hypocalcemia
- replete if symptomatic. In setting of Mg drip
- ECG QTc 413
Chronic:
hypothyroid
- continue home medication
Diet: as tolerated
Code:full
Anticipated Discharge: 24 - 48 hours
Subjective/Interval History
-
Date of Service: May 21, 2025
Pt reports feeling well today.
Objective Data
-
Labs:
Laboratory Results
05/21/25
05:47
WBC 8.1
Hgb 9.7 L
Hct 29.2 L
Plt Count 172
Sodium 139
Potassium 3.8
Chloride 109 H
Carbon Dioxide 28
BUN 6 L
Creatinine 0.6
Glucose 83
Calcium 8.5 D
Total Bilirubin 0.4
AST 277 H
ALT 207 H
Alkaline Phosphatase 90
Vital Signs:
Vital Signs
Temp Pulse Resp BP Pulse Ox
98.5 F 85 17 165/104 98
05/18/25 11:26 05/20/25 15:29 05/18/25 12:00 05/20/25 15:29 05/18/25 12:00
I&O
05/19/25 05/20/25 05/21/25
06:59 06:59 06:59
Intake Total 971.8 / 971.8
Output Total 485 / 485
Balance 486.8 / 486.8
Physical Exam
-
General: Well Developed, Well Nourished, No Apparent Distress and Comfortable
HEENT: Normocephalic, Atraumatic and Moist Mucous Membranes
Respiratory: Clear to Auscultation
Cardiac: Regular Rhythm and S1/S2
GI: Soft, Nontender (improving) and Nondistended
Musculoskeletal: No Edema
Skin: Warm
Neuro: AO x 3, No Motor Deficits and Nonfocal/Grossly Intact
Psych: Calm
[2025-05-21] MEDS: LR 1000 IV ×2 (07:17→19:15)
[2025-05-21] MEDS: MAGNESIUM SULFATE 100 IV (07:18)
[2025-05-21] MEDS: MAGNESIUM SULFATE 40 GRAM 1000 IV (07:36)
[2025-05-21] MEDS: PROCARDIA XL (EXTENDED RELEASE) 90 MG PO (07:46)
[2025-05-21] MEDS: FEOSOL 325 MG PO (07:47)
[2025-05-21] MEDS: COLACE 100 MG PO ×2 (07:47→19:44)
--- NOTE | 2025-05-21 08:16 | W.PN.CD ---
Today's Communication / Plan
-
monitor bp today
stop nifedipine
will start labetalol tomorrow
Impression / Plan
-
Eclampsia:
-Seizures x 2 on 05/17/25. Magnesium and Valium were administered. was performed. Imaging reveals evidence for POSTERIOR REVERSIBLE ENCEPHALOPATHY SYNDROME (PRES). Neurology is on the case. Denies any further headaches or double vision.
-hypertension: patient was briefly on nicardipine drip. This was transitioned to nifedipine. IV labetolol as needed but none in last 24 h ours
-will transition to labetalol given lft elevation (see below)
transaminitis: Acute
-? Hellp --so far plt and hgb ok, mag started
-can rarely be linked to nifedipine, so will transition to Labetalol
-additional evaluation per medicine and OB.
Hypothyroidism:
-TSH WNL this admit
-on Synthroid
Anemia:
-stable at 9.7
Subjective;
she is feeling better, no complaints.
Physical Exam
Vital Signs/Labs
Vital Signs
Temp Pulse Resp BP Pulse Ox
98.5 F 88 17 145/98 98
05/18/25 11:26 05/21/25 07:46 05/18/25 12:00 05/21/25 07:46 05/18/25 12:00
05/21/25 05:47
05/21/25 05:47
PT 13.3 Sec (11.4-14.6) 05/17/25 14:09
INR 0.98 05/17/25 14:09
APTT 18.4 Sec (23.4-35.0) L 05/17/25 14:09
Magnesium 6.7 mg/dl (1.6-2.3) H* 05/18/25 09:55
Triglycerides Cancelled 05/20/25 06:00
Physical Exam
Constitutional: No acute distress
Cardiovascular: Rhythm & rate is regular, Pedal edema is absent, JVD pressure is normal, Systolic murmur absent and Diastolic murmur absent
Respiratory: Respiratory effort normal, Lungs clear to auscul., Wheeze Absent, Crackles Absent and Rhonchi Absent
Neuro/Psych: AO x 3
Data Reviewed
-
Date of Service: May 21, 2025
Medical Decision Making: Review of Case with other Provider (Dr Carrillo, will change to labetalol in am)
[2025-05-21] MEDS: MIRALAX PO (17:55)
[2025-05-21 19:38] LABS: Hematocrit 29.2 % (37.0-47.0); Hemoglobin 9.8 g/dL (12.0-16.0); Mean Corp Hgb Conc. 33.6 g/dL (33.0-37.0); Mean Corpuscular Volume 92.1 fL (81.0-99.0); Nucleated Red Blood Cells % 0 %; Platelet Count 191 10^3/uL (130-400); Red Cell Dist. Width 12.5 % (11.5-14.5)
[2025-05-21 20:02] LABS: ALT (SGPT) 176 U/L (0-35); AST (SGOT) 196 U/L (14-36); Albumin 3.0 g/dl (3.5-5.0); Alkaline Phosphatase 94 U/L (38-126); Blood Urea Nitrogen 5 mg/dl (7-17); Calcium 6.4 mg/dl (8.4-10.2); Carbon Dioxide 26 mmol/L (22-30); Chloride 106 mmol/L (98-107); Estimated Creatinine Clearance 120 ml/min; Glucose 141 mg/dl (70-99); Magnesium 5.7 mg/dl (1.6-2.3); Potassium 3.3 mmol/L (3.5-5.1); Sodium 134 mmol/L (135-145); Total Protein 5.8 g/dl (6.3-8.2); eGFR > 60.00
[2025-05-22] MEDS: MOTRIN 600 MG PO ×4 (00:04→18:13)
[2025-05-22] MEDS: MAGNESIUM SULFATE 40 GRAM 1000 IV (02:49)
[2025-05-22] MEDS: TYLENOL 650 MG PO ×4 (03:17→18:12)
[2025-05-22] MEDS: SYNTHROID 25 MCG PO (05:48)
[2025-05-22 06:10] LABS: Hematocrit 30.3 % (37.0-47.0); Hemoglobin 10.2 g/dL (12.0-16.0); Mean Corp Hgb Conc. 33.7 g/dL (33.0-37.0); Mean Corpuscular Volume 95.3 fL (81.0-99.0); Nucleated Red Blood Cells % 0 %; Platelet Count 195 10^3/uL (130-400); Red Cell Dist. Width 12.4 % (11.5-14.5)
[2025-05-22 06:54] LABS: ALT (SGPT) 177 U/L (0-35); AST (SGOT) 160 U/L (14-36); Albumin 3.2 g/dl (3.5-5.0); Alkaline Phosphatase 103 U/L (38-126); Blood Urea Nitrogen 5 mg/dl (7-17); Calcium 6.2 mg/dl (8.4-10.2); Carbon Dioxide 30 mmol/L (22-30); Chloride 107 mmol/L (98-107); Estimated Creatinine Clearance 120 ml/min; Glucose 91 mg/dl (70-99); Magnesium 6.3 mg/dl (1.6-2.3); Potassium 4.2 mmol/L (3.5-5.1); Sodium 137 mmol/L (135-145); Total Protein 6.1 g/dl (6.3-8.2); eGFR > 60.00
--- NOTE | 2025-05-22 07:23 | W.PN.HOSP.TC ---
Addendum entered and electronically signed by Yaw Carreno MD 05/22/25 17:08:
I personally reviewed and evaluated this patient with the resident. I agree with above unless if otherwise stated below.
I personally reviewed labs and imaging hospice consultant notes case management note
Addendum entered and electronically signed by Yaw Carreno MD 05/22/25 17:06:
Eclampsia which is defined by seizure and uncontrolled hypertension/hypertensive urgency, no UA to check for proteinuria
S/p delivery of male fetus via , transferred to [facility]
S/p magnesium sulfate drip and currently on oxytocin
inci care by OB
Being managed by Ob
Fortunately without evidence of help syndrome as platelets have been greater than 150, LFTs within normal and bili was less than 0.5 therefore low clinical suspicion for hemolytic anemia/schistocytes to be present on peripheral blood smear however
was not checked
Transaminitis, improving
Concern for help syndrome although platelets hemoglobin bili stable
Mag sulfate now off
?related to CCB
Hypertension
Continue CCB, have room to titrate up
Add labetalol
Seizures secondary to eclampsia
While in the ED CT brain completed fortunately without bleed or lesions. Per documentation there is no noted evidence of focal neurological deficit, blown pupils to suspect bleed or stroke. From documentation did not sound as though she was in
status epilepticus however did have another seizure while in CT.
Neurology consulted. Continues to have blurry vision, per neurology will perform MRI brain in the next 24 hours not back to baseline
Continue magnesium per gynecology
Would not add additional antiepileptic agents at this time
MRI completed, neuro to continue to follow as an outpatient
Hypothyroidism
Continue levothyroxine
Acute hypoxemic respiratory failure requiring mechanical ventilation during and post .
Extubated on 05/18/2025
Anemia likely acute on chronic
Without evidence of acute active bleeding
Will continue to follow hemoglobin and for evidence of bleeding
Hemodynamically stable
Transfuse if <7
Original Note:
Today's Communication/Plan
-
plan reviewed with attending
We will follow from afar. Please reach out with further questions or concerns.
Assessment / Plan
Assessment / Plan
35yoF presented initially 31 weeks with eclampsia, headache, vomiting, seizing at home. Her partner called EMS, en route gave magnesium. Pt received Mg and labetalol in ED, had another seizure in CT scanner. Intubated and had emergency
, brought to ICU intubated and sedated. Baby sent to [facility].
Pt was being weaned off sedation still intubated in morning. Now extubated. She reported continued double vision that is improving. She denies headache, confusion. Reports mild abdominal discomfort, no acute pain.
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
Pt presented with seizures and elevated BP, now resolving s/p c section on Mg and nicardipine drip 2.5mg. AFVSS. LFTs WNL, no concern for HELLP.
Managed by OB. On L and D floor now. Transitioned to PO nifedipine. MRI brain ordered for continued blurry vision.
Pt reports resolution of double vision. She saw some floaters overnight with resolution by rounds this morning. Discussed CT and MRI results that correlate with visual symptoms. HTN control per OB.
MRI: Signal alteration in the subcortical white matter of the bilateral occipital lobes with a similar distribution compared to the recent head CT from 05/17/2025. The imaging appearance is again considered most suspicious for posterior reversible
encephalopathy syndrome (PRES).
Transaminitis improved, off mg and ivf drips. AFVSS with continued hypertension. Cardiology following.
We will follow from afar. Please reach out with any further questions.
#Eclampsia with evidence of HTN and seizures
- Mg managed by OB- Stopped after 24hrs . restarted mg drip with increasing LFTs
- No seizures since removal of placenta
- HTN improving on nicardipine with PRN labetalol. Nicardipine drip stopped transitioned to PO. Labetalol added yesterday. Cardiology following. nifedipine stopped
- brain MRI demosntrated PRES
- Neurology signed off. No antiepileptics recommended.
#s/p 31wk
#transaminitis
- possibly in setting of labetalol. OB added back fluids and Mg. Stopped today. LFTs improved
- Watch carefully
#anemia
- s/p c section
- Monitor h and h
- Transfuse if Hgb <7
#hypocalcemia
- replete if symptomatic. In setting of Mg drip
- ECG QTc 413
Chronic:
hypothyroid
- continue home medication
Diet: as tolerated
Code:full
Anticipated Discharge: Within 24 hours
Subjective/Interval History
-
Date of Service: May 22, 2025
Pt reports feeling well today. No SOB, improving abdominal pain
Objective Data
-
Labs:
Laboratory Results
05/21/25 05/22/25
19:29 05:56
WBC 8.6 7.8
Hgb 9.8 L 10.2 L
Hct 29.2 L 30.3 L
Plt Count 191 195
Sodium 134 L 137
Potassium 3.3 L 4.2 D
Chloride 106 107
Carbon Dioxide 26 30
BUN 5 L 5 L
Creatinine 0.5 L 0.5 L
Glucose 141 H 91
Calcium 6.4 L* D 6.2 L*
Total Bilirubin 0.3 0.5
AST 196 H 160 H
ALT 176 H 177 H
Alkaline Phosphatase 94 103
Vital Signs:
Vital Signs
Temp Pulse Resp BP Pulse Ox
98.5 F 88 17 145/98 98
05/18/25 11:26 05/21/25 07:46 05/18/25 12:00 10/09/25 07:46 05/18/25 12:00
Physical Exam
-
General: Well Developed, Well Nourished, No Apparent Distress and Comfortable
HEENT: Normocephalic, Atraumatic and Moist Mucous Membranes
Respiratory: Clear to Auscultation and Non Labored Respirations
Cardiac: Regular Rhythm and S1/S2
GI: Soft, Nondistended and Tender
Musculoskeletal: No Edema
Skin: Warm and Dry
Neuro: AO x 3 and Nonfocal/Grossly Intact
Psych: Calm
[2025-05-22] MEDS: FEOSOL 325 MG PO (07:44)
[2025-05-22] MEDS: MYLICON 80 MG PO (07:44)
[2025-05-22] MEDS: COLACE 100 MG PO ×2 (07:44→19:50)
--- NOTE | 2025-05-22 09:35 | W.PN.CD ---
Today's Communication / Plan
-
start labetalol 200mg bid
Impression / Plan
-
Eclampsia:
-Seizures x 2 on 05/17/25. Magnesium and Valium were administered. was performed. Imaging reveals evidence for POSTERIOR REVERSIBLE ENCEPHALOPATHY SYNDROME (PRES). Neurology is on the case. Denies any further headaches or double vision.
-hypertension: patient was briefly on nicardipine drip. This was transitioned to nifedipine. IV labetolol as needed but none in last 24 hours
-will transition to labetalol given lft elevation (see below)
-Start labetalol 200mg po BID
transaminitis: Acute
-? Hellp --so far plt and hgb ok, mag started
-can rarely be linked to nifedipine, so will transition to Labetalol
-additional evaluation per medicine and OB.
Hypothyroidism:
-TSH WNL this admit
-on Synthroid
Anemia:
-stable at 9.7
Subjective;
she is feeling better, no complaints.
Physical Exam
Vital Signs/Labs
Vital Signs
Temp Pulse Resp BP Pulse Ox
98.5 F 88 17 145/98 98
05/18/25 11:26 05/21/25 07:46 05/18/25 12:00 05/21/25 07:46 05/18/25 12:00
05/22/25 05:56
05/22/25 05:56
PT 13.3 Sec (11.4-14.6) 05/17/25 14:09
INR 0.98 05/17/25 14:09
APTT 18.4 Sec (23.4-35.0) L 05/17/25 14:09
Magnesium 6.3 mg/dl (1.6-2.3) H* 05/22/25 05:56
Triglycerides Cancelled 05/20/25 06:00
Physical Exam
Constitutional: No acute distress
Cardiovascular: Rhythm & rate is regular, Pedal edema is absent, JVD pressure is normal, Systolic murmur absent and Diastolic murmur absent
Respiratory: Respiratory effort normal, Lungs clear to auscul., Wheeze Absent, Crackles Absent and Rhonchi Absent
Neuro/Psych: AO x 3
Data Reviewed
-
Date of Service: May 22, 2025
Medical Decision Making: Review of Case with other Provider (Dr Duran, will start labetalol. )
[2025-05-22] MEDS: TRANDATE 200 MG PO (09:53)
[2025-05-22] MEDS: ROXICODONE 5 MG PO (14:14)
[2025-05-22] MEDS: LR IV (14:16)
[2025-05-22] MEDS: TRANDATE 10 MG IV ×2 (17:06→17:36)
[2025-05-22] MEDS: MIRALAX 17 GRAMS PO (18:20)
[2025-05-22] MEDS: TRANDATE 300 MG PO (19:50)
[2025-05-22] MEDS: TRANDATE 40 MG IV (20:08)
[2025-05-23] MEDS: MOTRIN 600 MG PO ×4 (00:23→23:50)
[2025-05-23] MEDS: TYLENOL 650 MG PO ×3 (00:24→23:50)
[2025-05-23] MEDS: TRANDATE 20 MG IV (04:06)
[2025-05-23] MEDS: APRESOLINE 10 MG IV (04:58)
[2025-05-23] MEDS: ADALAT 10 MG PO (05:01)
[2025-05-23] MEDS: SYNTHROID 25 MCG PO (05:02)
[2025-05-23 07:54] LABS: Hematocrit 28.3 % (37.0-47.0); Hemoglobin 9.5 g/dL (12.0-16.0); Mean Corp Hgb Conc. 33.6 g/dL (33.0-37.0); Mean Corpuscular Volume 93.4 fL (81.0-99.0); Platelet Count 190 10^3/uL (130-400); Red Cell Dist. Width 12.6 % (11.5-14.5)
[2025-05-23] MEDS: TRANDATE 400 MG PO ×2 (07:59→19:42)
[2025-05-23] MEDS: FEOSOL 325 MG PO (08:00)
[2025-05-23] MEDS: MIRALAX 17 GRAMS PO (08:00)
[2025-05-23] MEDS: COLACE 100 MG PO ×2 (08:00→19:40)
[2025-05-23 08:23] LABS: ALT (SGPT) 133 U/L (0-35); AST (SGOT) 100 U/L (14-36); Albumin 3.1 g/dl (3.5-5.0); Alkaline Phosphatase 98 U/L (38-126); Blood Urea Nitrogen 7 mg/dl (7-17); Calcium 8.1 mg/dl (8.4-10.2); Carbon Dioxide 28 mmol/L (22-30); Chloride 110 mmol/L (98-107); Estimated Creatinine Clearance 120 ml/min; Glucose 87 mg/dl (70-99); Potassium 3.9 mmol/L (3.5-5.1); Sodium 139 mmol/L (135-145); Total Protein 5.9 g/dl (6.3-8.2); eGFR > 60.00
[2025-05-23 08:40] LABS: Triglycerides 226 mg/dl (10-149)
--- NOTE | 2025-05-23 09:47 | W.PN.CD ---
Today's Communication / Plan
-
labetalol increased to 400mg po bid
monitor bp
Impression / Plan
-
Eclampsia:
-Seizures x 2 on 05/17/25. Magnesium and Valium were administered. was performed. Imaging reveals evidence for POSTERIOR REVERSIBLE ENCEPHALOPATHY SYNDROME (PRES). Neurology is on the case. Denies any further headaches or double vision.
-hypertension: patient was briefly on nicardipine drip. This was transitioned to nifedipine. IV labetolol as needed but none in last 24 hours
-will transition to labetalol given lft elevation (see below)
-Start labetalol 200mg po BID--> Titrated up to 400mg po BID 05/23/25
transaminitis: Acute
-? Hellp --so far plt and hgb ok, s/p mag
-improving
-additional evaluation per medicine and OB.
Hypothyroidism:
-TSH WNL this admit
-on Synthroid
Anemia:
-stable at 9.7
Subjective;
she is feeling better, no complaints.
Physical Exam
Vital Signs/Labs
Vital Signs
Temp Pulse Resp BP Pulse Ox
98.5 F 89 17 119/87 98
05/18/25 11:26 05/23/25 07:59 05/18/25 12:00 05/23/25 07:59 05/18/25 12:00
05/23/25 07:41
05/23/25 07:41
PT 13.3 Sec (11.4-14.6) 05/17/25 14:09
INR 0.98 05/17/25 14:09
APTT 18.4 Sec (23.4-35.0) L 05/17/25 14:09
Magnesium 6.3 mg/dl (1.6-2.3) H* 05/22/25 05:56
Triglycerides 226 mg/dl (10-149) H 05/23/25 07:41
Physical Exam
Constitutional: No acute distress
Cardiovascular: Rhythm & rate is regular, Pedal edema is absent, JVD pressure is normal, Systolic murmur absent and Diastolic murmur absent
Respiratory: Respiratory effort normal, Lungs clear to auscul., Wheeze Absent, Crackles Absent and Rhonchi Absent
Neuro/Psych: AO x 3
Data Reviewed
-
Date of Service: May 23, 2025
Medical Decision Making: Review of Case with other Provider (L&D nursing and Dr Mario, agree with increased labetalol dose)
[2025-05-24] MEDS: APRESOLINE 10 MG IV (01:27)
[2025-05-24] MEDS: SYNTHROID 25 MCG PO (06:07)
[2025-05-24] MEDS: MOTRIN 600 MG PO ×3 (06:07→22:12)
[2025-05-24] MEDS: TYLENOL 650 MG PO ×2 (06:07→20:32)
--- NOTE | 2025-05-24 08:15 | W.PN.CD ---
Today's Communication / Plan
-
increase labetolol to 600mg po bid
add hydralazine 10mg bid uptitrate prn
discussed home bp monitoring and being aware of symptoms for low bp as well
Impression / Plan
-
Eclampsia:
-Seizures x 2 on 05/17/25. Magnesium and Valium were administered. was performed. Imaging reveals evidence for POSTERIOR REVERSIBLE ENCEPHALOPATHY SYNDROME (PRES). Neurology is on the case. Denies any further headaches or double vision.
-hypertension: patient was briefly on nicardipine drip. This was transitioned to nifedipine. IV labetolol as needed but none in last 24 hours
-will transition to labetalol given lft elevation (see below)
-Start labetalol 200mg po BID--> Titrated up to 400mg po BID 05/23/25-->600mg po BID 05/24/25.
-05/24/25 add hydralazine 10mg po bid and titrate up prn
transaminitis: Acute
-? Hellp --so far plt and hgb ok, s/p mag
-improving
-additional evaluation per medicine and OB.
Hypothyroidism:
-TSH WNL this admit
-on Synthroid
Anemia:
-stable at 9.7
Subjective;
she is feeling better, no complaints. Feeling anixous when she hears her vitals signs
Physical Exam
Vital Signs/Labs
Vital Signs
Temp Pulse Resp BP Pulse Ox
98.5 F 77 17 160/97 98
05/18/25 11:26 05/24/25 01:27 05/18/25 12:00 05/24/25 01:27 05/18/25 12:00
05/23/25 07:41
PT 13.3 Sec (11.4-14.6) 05/17/25 14:09
INR 0.98 05/17/25 14:09
APTT 18.4 Sec (23.4-35.0) L 05/17/25 14:09
Magnesium 6.3 mg/dl (1.6-2.3) H* 05/22/25 05:56
Triglycerides 226 mg/dl (10-149) H 05/23/25 07:41
Physical Exam
Constitutional: No acute distress
Cardiovascular: Rhythm & rate is regular, Pedal edema is absent, JVD pressure is normal, Systolic murmur absent and Diastolic murmur absent
Respiratory: Respiratory effort normal, Lungs clear to auscul., Wheeze Absent, Crackles Absent, Rhonchi Absent and Labored respirations
Neuro/Psych: AO x 3
Data Reviewed
-
Date of Service: May 24, 2025
Medical Decision Making: Review of Case with other Provider (Dr Mario increasing labetolol and adding hydralazine)
[2025-05-24] MEDS: TRANDATE 600 MG PO ×2 (08:17→20:33)
[2025-05-24] MEDS: FEOSOL 325 MG PO (08:18)
[2025-05-24] MEDS: COLACE 100 MG PO ×2 (08:18→20:32)
[2025-05-24] MEDS: MIRALAX PO (09:01)
[2025-05-24] MEDS: APRESOLINE PO ×2 (09:02→20:29)
[2025-05-24 09:32] LABS: ALT (SGPT) 175 U/L (0-35); AST (SGOT) 206 U/L (14-36); Albumin 3.2 g/dl (3.5-5.0); Alkaline Phosphatase 92 U/L (38-126); Blood Urea Nitrogen 8 mg/dl (7-17); Calcium 8.8 mg/dl (8.4-10.2); Carbon Dioxide 26 mmol/L (22-30); Chloride 110 mmol/L (98-107); Estimated Creatinine Clearance 120 ml/min; Glucose 95 mg/dl (70-99); Potassium 4.0 mmol/L (3.5-5.1); Sodium 137 mmol/L (135-145); Total Protein 6.1 g/dl (6.3-8.2); eGFR > 60.00
[2025-05-24 13:07] LABS: Hematocrit 26.2 % (37.0-47.0); Hemoglobin 8.9 g/dL (12.0-16.0); Mean Corp Hgb Conc. 34.0 g/dL (33.0-37.0); Mean Corpuscular Volume 92.9 fL (81.0-99.0); Platelet Count 175 10^3/uL (130-400); Red Cell Dist. Width 12.9 % (11.5-14.5)
[2025-05-25] MEDS: TYLENOL 650 MG PO ×2 (02:35→13:49)
[2025-05-25] MEDS: SYNTHROID 25 MCG PO (04:59)
[2025-05-25 05:25] LABS: Hematocrit 24.9 % (37.0-47.0); Hemoglobin 8.3 g/dL (12.0-16.0); Mean Corp Hgb Conc. 33.3 g/dL (33.0-37.0); Mean Corpuscular Volume 96.1 fL (81.0-99.0); Platelet Count 186 10^3/uL (130-400); Red Cell Dist. Width 13.0 % (11.5-14.5)
[2025-05-25 05:50] LABS: ALT (SGPT) 142 U/L (0-35); AST (SGOT) 107 U/L (14-36); Albumin 2.9 g/dl (3.5-5.0); Alkaline Phosphatase 81 U/L (38-126); Blood Urea Nitrogen 11 mg/dl (7-17); Calcium 8.8 mg/dl (8.4-10.2); Carbon Dioxide 29 mmol/L (22-30); Chloride 108 mmol/L (98-107); Estimated Creatinine Clearance 103 ml/min; Glucose 89 mg/dl (70-99); Potassium 4.4 mmol/L (3.5-5.1); Sodium 137 mmol/L (135-145); Total Protein 5.7 g/dl (6.3-8.2); eGFR > 60.00
[2025-05-25] MEDS: COLACE 100 MG PO (07:54)
[2025-05-25] MEDS: FEOSOL 325 MG PO (07:54)
[2025-05-25] MEDS: TRANDATE 600 MG PO (07:54)
[2025-05-25] MEDS: MIRALAX PO (07:55)
[2025-05-25] MEDS: APRESOLINE 10 MG PO (07:56)
--- NOTE | 2025-05-25 08:08 | W.PN.CD ---
Today's Communication / Plan
-
Home today on labetalol and hydralazine
Follow up with Tarsha MAHARAJ at 10 am on 06/09/25.
[address] [facility] [phone]
Impression / Plan
-
Eclampsia:
-Seizures x 2 on 05/17/25. Magnesium and Valium were administered. was performed. Imaging reveals evidence for POSTERIOR REVERSIBLE ENCEPHALOPATHY SYNDROME (PRES). Neurology is on the case. Denies any further headaches or double vision.
-hypertension: patient was briefly on nicardipine drip. This was transitioned to nifedipine. IV labetolol as needed but none in last 24 hours
-will transition to labetalol given lft elevation (see below)
-Start labetalol 200mg po BID--> Titrated up to 400mg po BID 05/23/25-->600mg po BID 05/24/25---continue
-05/24/25 add hydralazine 10mg po bid and titrate up prn---discussed with patient signs and symptoms of low bp, if needed hydralazine can just be stopped.
transaminitis: Acute
-? Hellp --so far plt and hgb ok, s/p mag
-improving
-additional evaluation per medicine and OB.
Hypothyroidism:
-TSH WNL this admit
-on Synthroid
Anemia:
-stable at 9.7
Subjective;
she is feeling better, no complaints.
Physical Exam
Vital Signs/Labs
Vital Signs
Temp Pulse Resp BP Pulse Ox
98.5 F 81 17 146/82 98
05/18/25 11:26 05/25/25 07:56 05/18/25 12:00 05/25/25 07:56 05/18/25 12:00
05/25/25 05:08
05/25/25 05:08
PT 13.3 Sec (11.4-14.6) 05/17/25 14:09
INR 0.98 05/17/25 14:09
APTT 18.4 Sec (23.4-35.0) L 05/17/25 14:09
Magnesium 6.3 mg/dl (1.6-2.3) H* 05/22/25 05:56
Triglycerides 226 mg/dl (10-149) H 05/23/25 07:41
Physical Exam
Constitutional: No acute distress
Cardiovascular: Rhythm & rate is regular, Pedal edema is absent, JVD pressure is normal, Systolic murmur absent and Diastolic murmur absent
Respiratory: Respiratory effort normal, Lungs clear to auscul., Wheeze Absent, Crackles Absent and Rhonchi Absent
Neuro/Psych: AO x 3
Data Reviewed
-
Date of Service: May 25, 2025
Medical Decision Making: Review of Case with other Provider (D/w Dr Paz, fl to [facility] on current meds )
[2025-05-25] MEDS: ADACEL 0.5 ML IM (12:08)
[2025-05-25] MEDS: MOTRIN 600 MG PO (13:51)
--- NOTE | 2025-05-25 16:05 | W.DCSUMMARY ---
Discharge Summary
Discharge Data
Date of Admission: 05/17/25
Date of Discharge: 05/25/25
-
Pending Results: No
Hospital Course
Patient is a 35yo @31.0 who presented to the ED via EMS after a witnessed seizure at home. The patient's boyfriend said she had an episode of altered mental status and a prolonged headache. She was a patient at [facility]. This was an IVF
and she had a possible history of chronic hypertension. She was given 2g of mag in the ambulance and then 4g of mag in the ER with 2g/hr maintenance. She also received 20mg of IV labetalol on admission. She had a CT of the head and had a
witnessed seizure during the CT. She was taken to the OR for primary low transverse section. The procedure was uncomplicated. Patient was placed under general anesthesia in the setting of eclampsia. She delivered a viable male infant who
was ultimately transferred to [facility] in [place]. Patient was transferred to the ICU intubated postop. She was sedated but responded to stimuli. On day 1, she was extubated and transferred out of ICU. She was continued on magnesium
until 24hrs . She was seen by Neurology for PRES on CT scan. An MRI was ordered but was not able to be done secondary to patient getting anxious going into MRI machine. On postop day 2, she was having floaters in her vision. She was
started on Procardia 30XL daily. Later in the day, she had severe range BPs and Procardia was increased to 60XL daily. On postop day 3 she was given 10mg of IV labetalol and Cardiology was consulted for BP management. The Procardia was increased to
90XL daily. She had the brain MRI that showed no changes and she was to follow up with Neurology outpatient. On postop day 4, her LFTs increased to 277/207. Magnesium was started again for seizure prophylaxis. It was thought that Procardia could
increased LFTs, so Procardia was changed to Labetalol 200mg BID. On day 5, she was feeling well. The magnesium was stopped. Her LFTs had started to downtrend. In the evening, she had sustained severe range BPs and was given 20mg of IV
labetalol. She was also given 40mg of IV labetalol and labetalol was increased to 300mg BID. She still had severe ranges BPs and was given 10mg of IV hydralazine and labetalol was increased to 400mg BID. On day 6, and had more severe
range BPs and was given IV antihypertensives. Labetalol was increased to 600mg BID. On day 7, hydralazine 10mg BID was added and BPs were better controlled. Her LFTs wer noted to have increased some, though still lower than the peak. Case
was discussed with [facility] who recommended repeat labs in the morning and consulting GI if the LFTs were increasing. On day 8, she was doing well with no complaints and was ready for DC home. Her BPs were well controlled on hydralazine 10mg
BID and labetalol 600mg BID. Her LFTs were downtrending again. She was given discharge instructions and return precautions. BP parameters discussed and reasons to call. Preeclampsia precautions reviewed. She was instructed to follow up in the office
by the end of the week for a BP check. She was also given follow up with Cardiology and to follow up with Neurology. All questions answered by patient and her prior to discharge.
Discharge Plan
-
Patient Disposition: Home (Routine Discharge)
Discharge Diagnosis/Procedures: eclampsia, PRES, delivery, acute blood loss anemia
Condition: Good
Diet: No restrictions
Activity: No strenuous activity
Driving Restrictions: No driving for 2 weeks
Bathing Restrictions: OK to Shower
Stand Alone Forms: LDRP Delivery, LDRP Hypertensive Disorders
Referrals:
Tarsha Trevino CRNP [Specified Professional Personl, Cardiology] - 06/09/25 10:00 am
Remedios Duran MD [Active, Gynecology] - in three to four days
Carlyle Paniagua MD [Active, Neurology] - 06/03/25
Referral Note: PRES f/u
UNKNOWN - PT NOT,INTERVIEWE [Family Provider]
Prescriptions:
New
hydralazine 10 mg Tablet
10 mg PO BID Qty: 90 0RF
ferrous sulfate [FeroSul] 325 mg (65 mg iron) Tablet
325 mg PO DAILY Qty: 1 0RF
acetaminophen 325 mg Tablet
650 mg PO Q4HPRN PRN (Reason: mild pain) Qty: 1 0RF
labetalol 200 mg Tablet
600 mg PO BID Qty: 90 0RF
ibuprofen 600 mg Tablet
600 mg PO Q6HPRN PRN (Reason: cramps) Qty: 60 0RF
Continued
levothyroxine [Synthroid] 25 mcg Tablet
25 mcg PO DAILY
Discharge Orders:
Discharge Patient (As Directed); Ordered 05/25/25
Ordered By: Marylin Paz
Discharge Date and Time
Discharge Date/Time: 05/25/25 14:34
Print Language: TAJIK
== END 2025-05-25 14:34 | disposition home or self-care (01) | DRG 786 ==
LOC: LDRP 14:50
PROVIDERS: Nurse Practitioner Family; Obstetrics & Gynecology; ADMITTING PHYSICIAN Obstetrics & Gynecology; EMERGENCY PHYSICIAN Emergency Medicine; OTHER PHYSICIAN Internal Medicine; OTHER PHYSICIAN Internal Medicine Cardiovascular Disease; OTHER PHYSICIAN Psychiatry & Neurology Neurology
PROC: 0BH17EZ Insertion of Endotracheal Airway into Trachea, Via Natural or Artificial Opening (ICD-10-PCS; 2025-05-17)
PROC: 5A09C5K Assistance with Respiratory Ventilation, 8-24 Consecutive Hours, Intubated Prone Positioning (ICD-10-PCS; 2025-05-17)
PROC: 5A1935Z Respiratory Ventilation, Less than 24 Consecutive Hours (ICD-10-PCS; 2025-05-17)
PROC: 10D00Z1 Extraction of Products of Conception, Low, Open Approach (ICD-10-PCS; 2025-05-17)
PROC: 3E0234Z Introduction of Serum, Toxoid and Vaccine into Muscle, Percutaneous Approach (ICD-10-PCS; 2025-05-25)
DX: O14.14 Severe pre-eclampsia complicating childbirth (principal); I67.83 Posterior reversible encephalopathy syndrome; J96.00 Acute respiratory failure, unspecified whether with hypoxia or hypercapnia; D62 Acute posthemorrhagic anemia; I16.1 Hypertensive emergency; Z37.0 Single live birth; Z3A.31 31 weeks gestation of pregnancy; O99.02 Anemia complicating childbirth; O32.1XX0 Maternal care for breech presentation, not applicable or unspecified; O99.52 Diseases of the respiratory system complicating childbirth; O99.284 Endocrine, nutritional and metabolic diseases complicating childbirth; E03.9 Hypothyroidism, unspecified; E83.51 Hypocalcemia; Z23 Encounter for immunization
CPT/HCPCS: 70450; 70551; 71045; 80048; 80053; 80076; 80306; 80307; 82330; 82803; 82805; 82962; 83605; 83735; 84100; 84443; 84478; 85025; 85027; 85384; 85610; 85730; 86850; 86900; 86901; 87070; 88307; 93005; 93306; 94002; 94003; 95708; 96374; 96375; 99291